=== PATIENT | male | born 1960 | race Hispanic/Latino ===

== ENCOUNTER 2022-08-04 12:57 | Emergency (ER) | payer MEDICARE, OTHER ==
[~2022-08-04] VITALS: Ht 180.3 cm; Wt 122.5 kg
[2022-08-04 13:28] LABS: BASOPHILS % (AUTO) 0.7 % (0.0-5.0); EOSINOPHILS % (AUTO) 0.7 % (0.0-8.0); HEMATOCRIT 32.6 % (42-54); LYMPHOCYTES % (AUTO) 19.3 % (21.0-51.0); MEAN CORPUSCULAR HEMOGLOBIN 29.1 pg (27.0-33.0); MEAN CORPUSCULAR HGB CONC 32.8 g/dL (32.0-36.0); MEAN CORPUSCULAR VOLUME 88.6 fL (79-99); MONOCYTES % (AUTO) 11.6 % (3.0-13.0); NEUTROPHILS % (AUTO) 61.1 % (40.0-77.0); NUCLEATED RED BLOOD CELLS 0.7 % (0.0-0.19); PLATELET COUNT (AUTO) 154 K/uL (130-400); RED BLOOD CELL COUNT(AUTO) 3.68 MIL/uL (4.50-6.20); RED CELL DISTRIBUTION WIDTH 16.1 % (11.0-15.5)
[2022-08-04] MEDS ORDERED: MECLIZINE HCL 25 MG TABLET PO ONE (13:30)
[2022-08-04] MEDS ORDERED: 0.9%NACL 1000ML 1,000 ML IV ONE (13:30)
[2022-08-04 13:39] LABS: CREATININE 1.5 mg/dL (0.5-1.5); POTASSIUM 4.2 mmol/L (3.5-5.1)
[2022-08-04 13:44] LABS: ALBUMIN 3.2 g/dL (3.5-5.0); TOTAL PROTEIN, SERUM 6.9 g/dL (6.0-8.3)
[2022-08-04 14:45] LABS: EOSINOPHILS % (MANUAL) 2 % (1-6); LYMPHOCYTES % (MANUAL) 24 % (22-44); MAN.DIFF COMMENT-IMPRESSION MANUAL DIFFERENTIAL; MONOCYTES % (MANUAL) 8 % (2-9); PLATELET MORPHOLOGY COMMENT ADEQUATE; SEGMENTED NEUTROPHILS % 66 % (40-70)
[2022-08-04] MEDS ORDERED: MECL-226 PO (15:01)
[2022-08-04 15:08] VITALS: BP 138/75
[2022-08-04 15:15] LABS: APPEARANCE,URINE CLEAR (CLEAR); BILIRUBIN,URINE NEGATIVE (NEGATIVE); COLOR,URINE COLORLESS (YELLOW); GLUCOSE, URINE (UA) NEGATIVE (NEGATIVE); KETONES,URINE NEGATIVE (NEGATIVE); LEUKOCYTE ESTERASE ,URINE 25 Leu/uL (NEGATIVE); NITRATE,URINE NEGATIVE (NEGATIVE); OCCULT BLOOD,URINE NEGATIVE (NEGATIVE); PH,URINE 5.5 (5.0-8.0); PROTEIN,URINE 30 mg/dL (NEGATIVE); UROBILINOGEN,URINE 0.2 mg/dL (0.2-1.0)
[2022-08-04 15:28] LABS: BACTERIA,URINE RARE /HPF (None Seen); MUCUS,URINE RARE LPF (None Seen); RBC,URINE 0-1 /HPF (0-1); SQUAMOUS EPITHELIAL CELL,UR RARE /HPF (0-2)
== END 2022-08-04 15:08 | disposition home or self-care (01) ==
LOC: EDH 12:57
DX: R42 Dizziness and giddiness (principal); R53.1 Weakness; E86.0 Dehydration; Z20.822 Contact with and (suspected) exposure to COVID-19; E11.9 Type 2 diabetes mellitus without complications; Z98.890 Other specified postprocedural states
CPT/HCPCS: 99285; 96360; 70450; 71045; 87635; 84484; 80053; 85025; 87804 ×2; 82948; 81001; 36415; 93005 ×2; C9803; J7030

== ENCOUNTER 2022-08-11 11:22 | Emergency (ER) | payer MEDICARE ==
[~2022-08-11] VITALS: Ht 172.7 cm; Wt 122.5 kg
[~2022-08-11 11:22] MED LIST: MECL-226 PO
[2022-08-11 12:04] LABS: BASOPHILS % (AUTO) 0.2 % (0.0-5.0); EOSINOPHILS % (AUTO) 0.7 % (0.0-8.0); HEMATOCRIT 30.8 % (42-54); MEAN CORPUSCULAR HEMOGLOBIN 28.4 pg (27.0-33.0); MEAN CORPUSCULAR HGB CONC 31.5 g/dL (32.0-36.0); MEAN CORPUSCULAR VOLUME 90.1 fL (79-99); MONOCYTES % (AUTO) 12.8 % (3.0-13.0); NEUTROPHILS % (AUTO) 76.2 % (40.0-77.0); NUCLEATED RED BLOOD CELLS 0.5 % (0.0-0.19); PLATELET COUNT (AUTO) 109 K/uL (130-400); RED BLOOD CELL COUNT(AUTO) 3.42 MIL/uL (4.50-6.20); RED CELL DISTRIBUTION WIDTH 17.2 % (11.0-15.5); WHITE BLOOD COUNT (AUTO) 5.6 K/uL (4.8-10.8)
[2022-08-11 12:21] LABS: CREATININE 1.4 mg/dL (0.5-1.5); POTASSIUM 3.2 mmol/L (3.5-5.1)
[2022-08-11 12:25] LABS: TOTAL PROTEIN, SERUM 6.2 g/dL (6.0-8.3)
[2022-08-11] MEDS ORDERED: POTASSIUM BICARB/CIT AC 25 MEQ TABLET.EFF PO STA (13:01)
[2022-08-11 13:47] VITALS: BP 148/63
== END 2022-08-11 14:33 | disposition home or self-care (01) ==
LOC: EDH 11:22
DX: E11.649 Type 2 diabetes mellitus with hypoglycemia without coma (principal); I10 Essential (primary) hypertension
CPT/HCPCS: 36415; 80053; 82948; 84484; 85025; 93005

== ENCOUNTER → 2022-09-17 | Outpatient (CLI) | payer MEDICARE | END | disposition home or self-care (01) | LOC: SHCH 07:40 | PROVIDERS: ATTEND Internal Medicine Cardiovascular Disease | DX: E11.9 Type 2 diabetes mellitus without complications (principal); E78.5 Hyperlipidemia, unspecified | CPT/HCPCS: 93306 ==

== ENCOUNTER 2022-10-28 14:05 | Emergency (ER) | payer MEDICARE ==
[~2022-10-28] VITALS: Ht 167.6 cm; Wt 90.7 kg
[2022-10-28 14:23] LABS: BASOPHILS % (AUTO) 0.3 % (0.0-5.0); EOSINOPHILS % (AUTO) 0.5 % (0.0-8.0); HEMATOCRIT 36.4 % (42-54); LYMPHOCYTES % (AUTO) 11.8 % (21.0-51.0); MEAN CORPUSCULAR HEMOGLOBIN 28.9 pg (27.0-33.0); MEAN CORPUSCULAR HGB CONC 30.5 g/dL (32.0-36.0); MEAN CORPUSCULAR VOLUME 94.8 fL (79-99); MONOCYTES % (AUTO) 10.1 % (3.0-13.0); PLATELET COUNT (AUTO) 165 K/uL (130-400); RED BLOOD CELL COUNT(AUTO) 3.84 MIL/uL (4.50-6.20); RED CELL DISTRIBUTION WIDTH 16.7 % (11.0-15.5); WHITE BLOOD COUNT (AUTO) 6.2 K/uL (4.8-10.8)
[2022-10-28 14:33] LABS: CREATININE 1.1 mg/dL (0.5-1.5); POTASSIUM 3.6 mmol/L (3.5-5.1)
[2022-10-28 14:38] LABS: ALBUMIN 3.1 g/dL (3.5-5.0); TOTAL PROTEIN, SERUM 6.8 g/dL (6.0-8.3)
[2022-10-28 15:58] VITALS: BP 140/60
== END 2022-10-28 16:31 | disposition home or self-care (01) ==
LOC: EDH 14:05
DX: E11.649 Type 2 diabetes mellitus with hypoglycemia without coma (principal); E78.00 Pure hypercholesterolemia, unspecified; I10 Essential (primary) hypertension; Z79.899 Other long term (current) drug therapy; Z79.4 Long term (current) use of insulin; Z79.84 Long term (current) use of oral hypoglycemic drugs
CPT/HCPCS: 36415; 80053; 82948; 85025

== ENCOUNTER 2023-06-14 18:20 | Emergency (ER) | payer MEDICARE ==
[~2023-06-14] VITALS: Ht 180.3 cm; Wt 122.5 kg
[~2023-06-14 18:20] MED LIST changes: +BENZ-39 PO
[2023-06-14 18:59] LABS: BASOPHILS # (AUTO) 0.02 K/uL (0.00-0.20); BASOPHILS % (AUTO) 0.3 % (0.0-5.0); EOSINOPHILS # (AUTO) 0.03 K/uL (0.00-0.70); EOSINOPHILS % (AUTO) 0.4 % (0.0-8.0); HEMATOCRIT 30.5 % (42-54); IMMATURE GRANULOCYTE ABSOLUTE 0.03 K/uL (0-1); LYMPHOCYTES # (AUTO) 0.7 K/uL (1.0-4.8); LYMPHOCYTES % (AUTO) 9.9 % (21.0-51.0); MEAN CORPUSCULAR HEMOGLOBIN 27.4 pg (27.0-33.0); MEAN CORPUSCULAR HGB CONC 31.5 g/dL (32.0-36.0); MEAN CORPUSCULAR VOLUME 86.9 fL (79-99); MONOCYTES # (AUTO) 0.2 K/uL (0.1-1.0); NEUTROPHILS # (AUTO) 6.4 K/uL (1.8-7.7); PLATELET COUNT (AUTO) 189 K/uL (130-400); RED BLOOD CELL COUNT(AUTO) 3.51 MIL/uL (4.50-6.20); RED CELL DISTRIBUTION WIDTH 16.8 % (11.0-15.5); WHITE BLOOD COUNT (AUTO) 7.5 K/uL (4.8-10.8)
[2023-06-14 19:15] LABS: CREATININE 1.6 mg/dL (0.5-1.5)
[2023-06-14 19:24] LABS: ALBUMIN 3.2 g/dL (3.5-5.0); BILIRUBIN,TOTAL 0.2 mg/dL (0.2-1.0); TOTAL PROTEIN, SERUM 6.8 g/dL (6.0-8.3)
[2023-06-14] MEDS ORDERED: LACTATED RINGERS 1000ML 1,000 ML IV ONE (20:00)
[2023-06-14 20:07] LABS: MAGNESIUM 1.9 mg/dL (1.80-2.40); THYROID STIMULATING HORMONE 1.81 uIU/mL (0.36-3.74)
[2023-06-14 21:20] LABS: APPEARANCE,URINE CLEAR (CLEAR); BILIRUBIN,URINE NEGATIVE (NEGATIVE); COLOR,URINE LIGHT-YELLOW (YELLOW); GLUCOSE, URINE (UA) >=1000 mg/dL (NEGATIVE); KETONES,URINE NEGATIVE (NEGATIVE); LEUKOCYTE ESTERASE ,URINE NEGATIVE Leu/uL (NEGATIVE); NITRATE,URINE NEGATIVE (NEGATIVE); OCCULT BLOOD,URINE NEGATIVE (NEGATIVE); PH,URINE 5.5 (5.0-8.0); PROTEIN,URINE 100 mg/dL (NEGATIVE); UROBILINOGEN,URINE 0.2 mg/dL (0.2-1.0)
[2023-06-14 21:21] LABS: ADD UA MICROSCOPIC YES
[2023-06-14 21:22] LABS: BACTERIA,URINE RARE /HPF (None Seen); MUCUS,URINE RARE LPF (None Seen)
[2023-06-14 22:02] VITALS: BP 159/72; PULSE 60; RESP 18; O2SAT 97
== END 2023-06-14 22:13 | disposition home or self-care (01) ==
LOC: EDH 18:20
DX: R53.1 Weakness (principal); I10 Essential (primary) hypertension; E78.00 Pure hypercholesterolemia, unspecified; E11.9 Type 2 diabetes mellitus without complications
CPT/HCPCS: 99285; 96360; 71045; 84443; 83735; 84484; 80053; 83690; 85025; 81001; 36415; 93005; J7120

== ENCOUNTER 2023-12-15 18:11 | Emergency (ER) | payer MEDICARE ==
[~2023-12-15] VITALS: Ht 180.3 cm; Wt 122.5 kg
[2023-12-15 21:21] LABS: HEMATOCRIT 32.2 % (42-54); IMMATURE GRANULOCYTE ABSOLUTE 0.02 K/uL (0-1); LYMPHOCYTES # (AUTO) 0.4 K/uL (1.0-4.8); MEAN CORPUSCULAR HEMOGLOBIN 27.7 pg (27.0-33.0); MEAN CORPUSCULAR HGB CONC 30.7 g/dL (32.0-36.0); MEAN CORPUSCULAR VOLUME 89.9 fL (79-99); MONOCYTES # (AUTO) 0.1 K/uL (0.1-1.0); MONOCYTES % (AUTO) 1.4 % (3.0-13.0); NEUTROPHILS # (AUTO) 3.7 K/uL (1.8-7.7); NEUTROPHILS % (AUTO) 88.1 % (40.0-77.0); PLATELET COUNT (AUTO) 173 K/uL (130-400); RED BLOOD CELL COUNT(AUTO) 3.58 MIL/uL (4.50-6.20); RED CELL DISTRIBUTION WIDTH 15.6 % (11.0-15.5); WHITE BLOOD COUNT (AUTO) 4.2 K/uL (4.8-10.8)
[2023-12-15 21:37] LABS: CREATININE 1.3 mg/dL (0.5-1.5); POTASSIUM 4.7 mmol/L (3.5-5.1)
[2023-12-15 21:41] LABS: ALBUMIN 3.4 g/dL (3.5-5.0); BILIRUBIN,TOTAL 0.3 mg/dL (0.2-1.0); TOTAL PROTEIN, SERUM 7.3 g/dL (6.0-8.3)
[2023-12-15 22:13] LABS: LYMPHOCYTES % (MANUAL) 9 % (22-44); MAN.DIFF COMMENT-IMPRESSION MANUAL DIFFERENTIAL; MONOCYTES % (MANUAL) 1 % (2-9); SEGMENTED NEUTROPHILS % 90 % (40-70); TOTAL CELLS COUNTED 100
[2023-12-15 23:18] VITALS: BP 149/66; PULSE 68; RESP 18; O2SAT 96
== END 2023-12-15 23:58 | disposition left against medical advice (07) ==
LOC: EDH 18:11
DX: R55 Syncope and collapse (principal); E11.9 Type 2 diabetes mellitus without complications; E78.00 Pure hypercholesterolemia, unspecified; I10 Essential (primary) hypertension
CPT/HCPCS: 36415; 70450; 71045; 80053; 83605; 84484; 85025

== ENCOUNTER 2023-12-28 22:02 | Emergency (ER) | payer MEDICARE ==
[~2023-12-28] VITALS: Ht 177.8 cm; Wt 102.1 kg
[2023-12-28 22:59] VITALS: BP 132/74; PULSE 66; RESP 18; O2SAT 99
== END 2023-12-28 23:51 | disposition home or self-care (01) ==
LOC: EDH 22:02
DX: E11.65 Type 2 diabetes mellitus with hyperglycemia (principal)
CPT/HCPCS: 71045; 82948

== ENCOUNTER 2023-12-30 11:29 | Emergency (ER) | payer MEDICARE ==
[~2023-12-30] VITALS: Ht 180.3 cm; Wt 120.2 kg
[2023-12-30] MEDS: 0.9%NACL 1000ML 2,259 ML IV ONE (12:14)
[2023-12-30 12:26] LABS: HEMATOCRIT 28.7 % (42-54); MEAN CORPUSCULAR HEMOGLOBIN 27.6 pg (27.0-33.0); MEAN CORPUSCULAR HGB CONC 30.7 g/dL (32.0-36.0); PLATELET COUNT (AUTO) 186 K/uL (130-400); RED BLOOD CELL COUNT(AUTO) 3.19 MIL/uL (4.50-6.20); RED CELL DISTRIBUTION WIDTH 16.7 % (11.0-15.5); WHITE BLOOD COUNT (AUTO) 5.6 K/uL (4.8-10.8)
[2023-12-30 12:36] LABS: CREATININE 1.5 mg/dL (0.5-1.5); POTASSIUM 4.4 mmol/L (3.5-5.1)
[2023-12-30 12:47] LABS: ABG BASE EXCESS -0.4 mmol/L (-2.0-3.0); ABG HCO3 23.1 mmol/L (21.0-28.0); ABG OXYGEN SATURATION 97.8 % (95.0-99.0); ABG PCO2 34 mmHg (35-48); ABG PH 7.444 (7.35-7.450); PO2, ARTERIAL BG 100.4 mmHg (83.0-108.0); VENT MODE, BG RA (ROOM AIR)
[2023-12-30] MEDS: INSULIN HUMULIN R 100 UNIT/ML 3ML IV ONE (12:59)
[2023-12-30 13:04] VITALS: BP 153/63; PULSE 63; RESP 18; O2SAT 99
[2023-12-30 14:12] LABS: LYMPHOCYTES % (MANUAL) 8 % (22-44); MONOCYTES % (MANUAL) 5 % (2-9); SEGMENTED NEUTROPHILS % 87 % (40-70); TOTAL CELLS COUNTED 100
[2023-12-30 14:13] LABS: MAN.DIFF COMMENT-IMPRESSION MANUAL DIFFERENTIAL; PLATELET MORPHOLOGY COMMENT ADEQUATE; WBC MORPHOLOGY CONSISTENT W/DIFF
== END 2023-12-30 14:05 | disposition home or self-care (01) ==
LOC: EDH 11:29
DX: E11.65 Type 2 diabetes mellitus with hyperglycemia (principal); E86.0 Dehydration; E78.00 Pure hypercholesterolemia, unspecified; I10 Essential (primary) hypertension; Z85.038 Personal history of other malignant neoplasm of large intestine
CPT/HCPCS: 99283; 96374; 96361; 80048; 82803; 85025; 82948; 82010; 36415; 36600; J1815; J7030

== ENCOUNTER 2024-03-21 22:09 | Emergency (ER) | payer MEDICARE ==
[2024-03-21 22:49] VITALS: BP 141/67; PULSE 71; RESP 22; O2SAT 98
[2024-03-21 23:04] LABS: BASOPHILS # (AUTO) 0.02 K/uL (0.00-0.20); BASOPHILS % (AUTO) 0.6 % (0.0-5.0); EOSINOPHILS # (AUTO) 0.03 K/uL (0.00-0.70); EOSINOPHILS % (AUTO) 0.9 % (0.0-8.0); HEMATOCRIT 26.2 % (42-54); IMMATURE GRANULOCYTE ABSOLUTE 0.13 K/uL (0-1); LYMPHOCYTES # (AUTO) 0.6 K/uL (1.0-4.8); LYMPHOCYTES % (AUTO) 17.7 % (21.0-51.0); MEAN CORPUSCULAR HEMOGLOBIN 27.6 pg (27.0-33.0); MEAN CORPUSCULAR HGB CONC 30.5 g/dL (32.0-36.0); MEAN CORPUSCULAR VOLUME 90.3 fL (79-99); MONOCYTES # (AUTO) 0.4 K/uL (0.1-1.0); MONOCYTES % (AUTO) 11.9 % (3.0-13.0); NEUTROPHILS # (AUTO) 2.2 K/uL (1.8-7.7); NEUTROPHILS % (AUTO) 65.1 % (40.0-77.0); PLATELET COUNT (AUTO) 201 K/uL (130-400); RED CELL DISTRIBUTION WIDTH 17.5 % (11.0-15.5); WHITE BLOOD COUNT (AUTO) 3.4 K/uL (4.8-10.8)
[2024-03-21 23:11] LABS: INR <= 0.93 (0.85-1.15); PROTHROMBIN TIME 10.6 SEC (9.6-11.6)
[2024-03-21 23:14] LABS: CREATININE 1.2 mg/dL (0.5-1.3)
[2024-03-21 23:20] LABS: ADD UA MICROSCOPIC YES; APPEARANCE,URINE CLEAR (CLEAR); BILIRUBIN,URINE NEGATIVE (NEGATIVE); COLOR,URINE COLORLESS (YELLOW); GLUCOSE, URINE (UA) >=1000 mg/dL (NEGATIVE); KETONES,URINE NEGATIVE (NEGATIVE); LEUKOCYTE ESTERASE ,URINE NEGATIVE Leu/uL (NEGATIVE); NITRATE,URINE NEGATIVE (NEGATIVE); OCCULT BLOOD,URINE NEGATIVE (NEGATIVE); PROTEIN,URINE 10 mg/dL (NEGATIVE); UROBILINOGEN,URINE 0.2 mg/dL (0.2-1.0)
[2024-03-21 23:21] LABS: BILIRUBIN,TOTAL 0.2 mg/dL (0.2-1.0); MAGNESIUM 2.1 mg/dL (1.80-2.40); TOTAL PROTEIN, SERUM 6.5 g/dL (6.0-8.3)
[2024-03-21 23:21] LABS: RBC,URINE 0-1 /HPF (0-1); WBC,URINE 0-1 /HPF (0-1)
[2024-03-21 23:42] LABS: B-TYPE NATRIURETIC PEPTIDE 66 pg/mL (0-100)
[2024-03-22] MEDS: LACTATED RINGERS 1000ML 1,000 ML IV ONE (01:00)
== END 2024-03-22 02:59 | disposition home or self-care (01) ==
LOC: EDH 22:09
DX: E86.0 Dehydration (principal); R55 Syncope and collapse; E11.9 Type 2 diabetes mellitus without complications; E78.00 Pure hypercholesterolemia, unspecified; I10 Essential (primary) hypertension
CPT/HCPCS: 99285; 96360; 70450; 71045; 96361; 82550; 83735; 84484 ×2; 80053; 83880; 85025; 85610; 82948; 81001; 36415; 93005; J7120

== ENCOUNTER 2024-04-14 14:28 | Observation (INO) | payer MEDICARE ==
[~2024-04-14] VITALS: Ht 180.3 cm; Wt 120.9 kg
[2024-04-14] MEDS: ASPIRIN 81MG CHEW TAB PO ONE (14:52)
[2024-04-14 15:03] LABS: BASOPHILS # (AUTO) 0.01 K/uL (0.00-0.20); BASOPHILS % (AUTO) 0.2 % (0.0-5.0); EOSINOPHILS # (AUTO) 0.01 K/uL (0.00-0.70); EOSINOPHILS % (AUTO) 0.2 % (0.0-8.0); HEMATOCRIT 25.8 % (42-54); IMMATURE GRANULOCYTE ABSOLUTE 0.02 K/uL (0-1); LYMPHOCYTES # (AUTO) 0.5 K/uL (1.0-4.8); LYMPHOCYTES % (AUTO) 10.5 % (21.0-51.0); MEAN CORPUSCULAR HEMOGLOBIN 27.3 pg (27.0-33.0); MEAN CORPUSCULAR HGB CONC 30.2 g/dL (32.0-36.0); MEAN CORPUSCULAR VOLUME 90.2 fL (79-99); MONOCYTES # (AUTO) 0.3 K/uL (0.1-1.0); MONOCYTES % (AUTO) 5.9 % (3.0-13.0); NEUTROPHILS # (AUTO) 4.2 K/uL (1.8-7.7); NEUTROPHILS % (AUTO) 82.8 % (40.0-77.0); PLATELET COUNT (AUTO) 193 K/uL (130-400); RED BLOOD CELL COUNT(AUTO) 2.86 MIL/uL (4.50-6.20); RED CELL DISTRIBUTION WIDTH 18.5 % (11.0-15.5); WHITE BLOOD COUNT (AUTO) 5.1 K/uL (4.8-10.8)
[2024-04-14 15:14] LABS: CREATININE 1.6 mg/dL (0.5-1.3); POTASSIUM 4.2 mmol/L (3.5-5.1)
[2024-04-14 15:22] LABS: BILIRUBIN,TOTAL 0.2 mg/dL (0.2-1.0); TOTAL PROTEIN, SERUM 6.5 g/dL (6.0-8.3)
[2024-04-14 15:31] LABS: B-TYPE NATRIURETIC PEPTIDE 74 pg/mL (0-100)
[2024-04-14] MEDS: 0.9% NACL 500ML IV.SOLN 500 ML IV ONE (17:59)
[2024-04-14 18:10] LABS: ADD UA MICROSCOPIC YES; APPEARANCE,URINE CLEAR (CLEAR); BILIRUBIN,URINE NEGATIVE (NEGATIVE); COLOR,URINE LIGHT-YELLOW (YELLOW); GLUCOSE, URINE (UA) >=1000 mg/dL (NEGATIVE); KETONES,URINE NEGATIVE (NEGATIVE); LEUKOCYTE ESTERASE ,URINE NEGATIVE Leu/uL (NEGATIVE); NITRATE,URINE NEGATIVE (NEGATIVE); OCCULT BLOOD,URINE NEGATIVE (NEGATIVE); PH,URINE 5.5 (5.0-8.0); PROTEIN,URINE 30 mg/dL (NEGATIVE); UROBILINOGEN,URINE 0.2 mg/dL (0.2-1.0)
[2024-04-14 18:16] LABS: BACTERIA,URINE RARE /HPF (None Seen); MUCUS,URINE RARE LPF (None Seen); SQUAMOUS EPITHELIAL CELL,UR RARE /HPF (0-2)
[2024-04-14] MEDS ORDERED: DEXTROSE 50%-WATER 50 ML DISP.SYRIN IV PRN (20:00)
[2024-04-14] MEDS ORDERED: ONDANSETRON 4MG INJ IV PRN (20:00)
[2024-04-14] MEDS ORDERED: ACETAMINOPHEN 325 MG TAB PO PRN ×2 (20:00)
[2024-04-14] MEDS ORDERED: POTASSIUM CHLORIDE 20MEQ/100ML 100 ML IV PRN (20:00)
[2024-04-14] MEDS ORDERED: NITROGLYCERIN 0.4 MG SL TAB SL PRN (20:00)
[2024-04-14] MEDS ORDERED: POTASSIUM CHLORIDE 10% ELIXIR 20 MEQ/15 ML UDCUP PO PRN (20:00)
[2024-04-14] MEDS ORDERED: GLUCAGON 1MG KIT 1 MG ML IM PRN (20:00)
[2024-04-14] MEDS ORDERED: KCL 20 MEQ ERTAB PO PRN (20:00)
[2024-04-14] MEDS ORDERED: MAGNESIUM 2GM PREMIX 50ML 50 ML IV PRN (20:00)
[2024-04-14] MEDS: 0.9%NACL 1000ML 1,000 ML IV SCH (21:30)
[2024-04-14] MEDS: INSULIN HUMULIN R 100 UNIT/ML 3ML SQ SCH (21:37)
[2024-04-14] MEDS: HYDRALAZINE 20MG/ML VIAL IV PRN (21:47)
[2024-04-14 22:00] VITALS: BP 163/63; PULSE 82; RESP 19; O2SAT 97
[2024-04-14] MEDS ORDERED: ROSU40TA70 PO (22:57)
[2024-04-14] MEDS ORDERED: DULO60CA45 PO (22:57)
[2024-04-14] MEDS ORDERED: SITA100T12 PO (22:57)
[2024-04-14] MEDS ORDERED: MEMA10TA21 PO (22:57)
[2024-04-14] MEDS ORDERED: CHOL500051 PO (22:57)
[2024-04-14] MEDS ORDERED: LISI40TA9 PO (22:57)
[2024-04-14] MEDS ORDERED: FENO145T26 PO (22:57)
[2024-04-14] MEDS ORDERED: GABA-529 PO (22:57)
[2024-04-14] MEDS ORDERED: PIOG15TA66 PO (22:57)
[2024-04-14] MEDS ORDERED: ALLO100T PO (22:57)
[2024-04-14] MEDS ORDERED: ASCO500T19 PO (22:57)
[2024-04-14] MEDS ORDERED: AMLO5TAB4 PO (22:57)
[2024-04-15] VITALS (8 sets, daily range): BP systolic 131–147; BP diastolic 52–64; PULSE 59–99; RESP 16–20; O2SAT 99
[2024-04-15] MEDS: PANTOPRAZOLE 40 MG/VIAL IVP SCH (08:10)
[2024-04-15 08:25] LABS: BASOPHILS # (AUTO) 0.01 K/uL (0.00-0.20); BASOPHILS % (AUTO) 0.3 % (0.0-5.0); HEMATOCRIT 28.2 % (42-54); IMMATURE GRANULOCYTE ABSOLUTE 0.03 K/uL (0-1); LYMPHOCYTES # (AUTO) 0.6 K/uL (1.0-4.8); MEAN CORPUSCULAR HEMOGLOBIN 27.3 pg (27.0-33.0); MEAN CORPUSCULAR HGB CONC 29.8 g/dL (32.0-36.0); MEAN CORPUSCULAR VOLUME 91.6 fL (79-99); MONOCYTES # (AUTO) 0.2 K/uL (0.1-1.0); NEUTROPHILS # (AUTO) 3.1 K/uL (1.8-7.7); NEUTROPHILS % (AUTO) 77.9 % (40.0-77.0); PLATELET COUNT (AUTO) 182 K/uL (130-400); RED BLOOD CELL COUNT(AUTO) 3.08 MIL/uL (4.50-6.20); RED CELL DISTRIBUTION WIDTH 18.2 % (11.0-15.5)
[2024-04-15 08:44] LABS: BILIRUBIN,TOTAL 0.2 mg/dL (0.2-1.0); CREATININE 1.1 mg/dL (0.5-1.3); TOTAL PROTEIN, SERUM 6.6 g/dL (6.0-8.3)
[2024-04-16] VITALS: BP 163/60; PULSE 60; RESP 17
[2024-04-16 04:00] VITALS: BP 111/57; PULSE 71; RESP 17
[2024-04-16 04:58] LABS: EOSINOPHILS # (AUTO) 0.02 K/uL (0.00-0.70); EOSINOPHILS % (AUTO) 0.6 % (0.0-8.0); HEMATOCRIT 27.1 % (42-54); IMMATURE GRANULOCYTE ABSOLUTE 0.01 K/uL (0-1); LYMPHOCYTES # (AUTO) 0.6 K/uL (1.0-4.8); MEAN CORPUSCULAR HEMOGLOBIN 27.5 pg (27.0-33.0); MEAN CORPUSCULAR HGB CONC 29.9 g/dL (32.0-36.0); MEAN CORPUSCULAR VOLUME 91.9 fL (79-99); MONOCYTES # (AUTO) 0.2 K/uL (0.1-1.0); MONOCYTES % (AUTO) 6.6 % (3.0-13.0); NEUTROPHILS # (AUTO) 2.6 K/uL (1.8-7.7); NEUTROPHILS % (AUTO) 75.5 % (40.0-77.0); PLATELET COUNT (AUTO) 187 K/uL (130-400); RED BLOOD CELL COUNT(AUTO) 2.95 MIL/uL (4.50-6.20); RED CELL DISTRIBUTION WIDTH 17.8 % (11.0-15.5); WHITE BLOOD COUNT (AUTO) 3.5 K/uL (4.8-10.8)
[2024-04-16 05:26] LABS: CARBON DIOXIDE 24 mmol/L (21-32); CHLORIDE 106 mmol/L (101-111); CREATININE 0.9 mg/dL (0.5-1.3); GLOMERULAR FILTR. RATE CALC 95 mL/min (>90); GLUCOSE,RANDOM 123 mg/dL (70-105); POTASSIUM 3.8 mmol/L (3.5-5.1); SODIUM SERUM 140 mmol/L (136-145); UREA NITROGEN, BLOOD 18 mg/dL (7-18)
[2024-04-16 08:00] VITALS: O2SAT 99
[2024-04-16 08:02] VITALS: BP 154/69; PULSE 61; RESP 20
[2024-04-16 11:27] VITALS: BP 141/61; PULSE 61; RESP 18
[2024-04-16] MEDS ORDERED: ALLOPURINOL 100 MG TABLET PO SCH (21:00)
[2024-04-16] MEDS ORDERED: GABAPENTIN 300 MG CAPSULE PO SCH (21:00)
[2024-04-16] MEDS ORDERED: MEMANTINE HCL 5 MG TABLET PO SCH (21:00)
[2024-04-17] MEDS ORDERED: AMLODIPINE 5 MG TAB PO SCH (09:00)
[2024-04-17] MEDS ORDERED: ASCORBIC ACID 500 MG TAB PO SCH (09:00)
[2024-04-17] MEDS ORDERED: LISINOPRIL 40 MG TABLET PO SCH (09:00)
[2024-04-17] MEDS ORDERED: PIOGLITAZONE 15MG TAB PO SCH (09:00)
[2024-04-17] MEDS ORDERED: DULOXETINE HCL 30 MG CAP PO SCH (09:00)
[2024-04-17] MEDS ORDERED: (Sitagliptin Phosphate (Januvia) 100 MG) PO SCH (09:00)
[2024-04-17] MEDS ORDERED: FENOFIBRATE NANOCRYSTALLIZED 145 MG TAB PO SCH (09:00)
== END 2024-04-16 13:20 | disposition home or self-care (01) ==
LOC: EDH 14:28 → EDHIP 19:54 → 3DH 21:44
PROVIDERS: ADMIT Internal Medicine; ATTEND Internal Medicine
DX: R07.89 Other chest pain (principal); D64.9 Anemia, unspecified; E11.65 Type 2 diabetes mellitus with hyperglycemia; N17.9 Acute kidney failure, unspecified; R74.8 Abnormal levels of other serum enzymes; I10 Essential (primary) hypertension; E66.9 Obesity, unspecified; I25.9 Chronic ischemic heart disease, unspecified; Z93.3 Colostomy status; Z85.038 Personal history of other malignant neoplasm of large intestine; Z87.891 Personal history of nicotine dependence; Z68.37 Body mass index [BMI] 37.0-37.9, adult; Z86.2 Personal history of diseases of the blood and blood-forming organs and certain disorders involving the immune mechanism; Z79.899 Other long term (current) drug therapy
CPT/HCPCS: 96372 ×4; 96374; 96361 ×4; 99285; 84484 ×5; 80053 ×2; 83880; 83690; 85025 ×3; 86850; 86900; 86901; 82948 ×7; 81001; 36415 ×3; 71045; 93005; 96375; 83735; 93306; 93356; 76376; 96376; 83540; 83550; 80048; 82607; 82746; 82270; J1815 ×2; G0378 ×40; A4600; J0360 ×2; C9113 ×2

== ENCOUNTER 2024-05-30 23:34 | Emergency (ER) | payer MEDICARE ==
[~2024-05-30 23:34] MED LIST changes: +ALLO100T PO; +AMLO5TAB4 PO; +ASCO500T19 PO; -BENZ-39 PO; +CHOL500051 PO; +DULO60CA45 PO; +FENO145T26 PO; +GABA-529 PO; +LISI40TA9 PO; -MECL-226 PO; +MEMA10TA21 PO; +PIOG15TA66 PO; +ROSU40TA70 PO; +SITA100T12 PO
[2024-05-31 00:11] LABS: BASOPHILS # (AUTO) 0.01 K/uL (0.00-0.20); BASOPHILS % (AUTO) 0.2 % (0.0-5.0); EOSINOPHILS # (AUTO) 0.02 K/uL (0.00-0.70); EOSINOPHILS % (AUTO) 0.4 % (0.0-8.0); HEMATOCRIT 27.8 % (42-54); IMMATURE GRANULOCYTE ABSOLUTE 0.02 K/uL (0-1); LYMPHOCYTES # (AUTO) 0.7 K/uL (1.0-4.8); LYMPHOCYTES % (AUTO) 15.5 % (21.0-51.0); MEAN CORPUSCULAR HEMOGLOBIN 26.8 pg (27.0-33.0); MEAN CORPUSCULAR HGB CONC 29.9 g/dL (32.0-36.0); MEAN CORPUSCULAR VOLUME 89.7 fL (79-99); MONOCYTES # (AUTO) 0.4 K/uL (0.1-1.0); MONOCYTES % (AUTO) 9.9 % (3.0-13.0); NEUTROPHILS # (AUTO) 3.3 K/uL (1.8-7.7); NEUTROPHILS % (AUTO) 73.6 % (40.0-77.0); PLATELET COUNT (AUTO) 174 K/uL (130-400); RED CELL DISTRIBUTION WIDTH 19.1 % (11.0-15.5); WHITE BLOOD COUNT (AUTO) 4.5 K/uL (4.8-10.8)
[2024-05-31 00:14] LABS: CREATININE 1.2 mg/dL (0.5-1.3); POTASSIUM 4.4 mmol/L (3.5-5.1)
[2024-05-31 00:18] LABS: ALBUMIN 3.1 g/dL (3.5-5.0); BILIRUBIN,TOTAL 0.2 mg/dL (0.2-1.0); TOTAL PROTEIN, SERUM 6.6 g/dL (6.0-8.3)
[2024-05-31 00:31] LABS: B-TYPE NATRIURETIC PEPTIDE 69 pg/mL (0-100)
[2024-05-31] MEDS: ASPIRIN 325MG TAB PO ONE (00:50)
[2024-05-31] MEDS: FUROSEMIDE 40MG VIAL IVP ONE (00:52)
[2024-05-31] MEDS ORDERED: FURO40TA7 PO (03:05)
[2024-05-31 03:26] VITALS: BP 125/51; PULSE 65; RESP 16; O2SAT 98
== END 2024-05-31 03:34 | disposition home or self-care (01) ==
LOC: EDH 23:34
DX: R06.00 Dyspnea, unspecified (principal); I10 Essential (primary) hypertension; E11.9 Type 2 diabetes mellitus without complications; E78.5 Hyperlipidemia, unspecified; F32.A Depression, unspecified; Z79.84 Long term (current) use of oral hypoglycemic drugs; Z79.899 Other long term (current) drug therapy; Z98.890 Other specified postprocedural states
CPT/HCPCS: 99285; 71045; 84484; 80053; 83880; 85025; 36415 ×2; 93005; 96374; J1940

== ENCOUNTER 2024-07-18 18:20 | Emergency (ER) | payer MEDICARE ==
[~2024-07-18] VITALS: Ht 180.3 cm; Wt 127.0 kg
[~2024-07-18 18:20] MED LIST changes: +FURO40TA7 PO; -ROSU40TA70 PO; +ROSU40TA88 PO
[2024-07-18 18:50] VITALS: O2SAT 97
[2024-07-18 18:54] LABS: BASOPHILS # (AUTO) 0.02 K/uL (0.00-0.20); BASOPHILS % (AUTO) 0.3 % (0.0-5.0); HEMATOCRIT 32.1 % (42-54); IMMATURE GRANULOCYTE ABSOLUTE 0.28 K/uL (0-1); LYMPHOCYTES # (AUTO) 0.5 K/uL (1.0-4.8); LYMPHOCYTES % (AUTO) 6.4 % (21.0-51.0); MEAN CORPUSCULAR HEMOGLOBIN 27.4 pg (27.0-33.0); MEAN CORPUSCULAR HGB CONC 29.9 g/dL (32.0-36.0); MEAN CORPUSCULAR VOLUME 91.7 fL (79-99); MONOCYTES # (AUTO) 0.1 K/uL (0.1-1.0); MONOCYTES % (AUTO) 1.1 % (3.0-13.0); NEUTROPHILS # (AUTO) 6.3 K/uL (1.8-7.7); NEUTROPHILS % (AUTO) 88.3 % (40.0-77.0); PLATELET COUNT (AUTO) 243 K/uL (130-400); RED CELL DISTRIBUTION WIDTH 19.3 % (11.0-15.5); WHITE BLOOD COUNT (AUTO) 7.2 K/uL (4.8-10.8)
[2024-07-18 19:10] LABS: CREATININE 1.9 mg/dL (0.5-1.3); POTASSIUM 4.9 mmol/L (3.5-5.1)
[2024-07-18 19:10] LABS: APPEARANCE,URINE CLEAR (CLEAR); BILIRUBIN,URINE NEGATIVE (NEGATIVE); COLOR,URINE COLORLESS (YELLOW); GLUCOSE, URINE (UA) >=1000 mg/dL (NEGATIVE); KETONES,URINE NEGATIVE (NEGATIVE); LEUKOCYTE ESTERASE ,URINE 25 Leu/uL (NEGATIVE); NITRATE,URINE NEGATIVE (NEGATIVE); OCCULT BLOOD,URINE NEGATIVE (NEGATIVE); PH,URINE 6.5 (5.0-8.0); PROTEIN,URINE NEGATIVE (NEGATIVE); UROBILINOGEN,URINE 0.2 mg/dL (0.2-1.0)
[2024-07-18 19:16] LABS: ADD UA MICROSCOPIC YES
[2024-07-18 19:17] LABS: RBC,URINE 0-1 /HPF (0-1); SQUAMOUS EPITHELIAL CELL,UR RARE /HPF (0-2)
[2024-07-18] MEDS: morPHINE 4 MG SYG IVP ONE (19:36)
[2024-07-18] MEDS: ONDANSETRON 4MG INJ IVP ONE (19:36)
[2024-07-18] MEDS: FAMOTIDINE 20MG VIAL IV ONE (19:36)
[2024-07-18] MEDS: 0.9%NACL 1000ML 1,000 ML IV ONE ×2 (19:47→22:31)
[2024-07-18] MEDS: INSULIN humuLIN R 100 UNIT/ML 3ML IV SCH (19:47)
[2024-07-18 19:56] LABS: BAND NEUTROPHILS % (MANUAL) 4 % (0-2); LYMPHOCYTES % (MANUAL) 15 % (22-44); MAN.DIFF COMMENT-IMPRESSION MANUAL DIFFERENTIAL; MONOCYTES % (MANUAL) 3 % (2-9); PLATELET MORPHOLOGY COMMENT ADEQUATE; SEGMENTED NEUTROPHILS % 78 % (40-70); TOTAL CELLS COUNTED 100; WBC MORPHOLOGY CONSISTENT W/DIFF
[2024-07-18 21:41] LABS: CREATININE 1.6 mg/dL (0.5-1.3); POTASSIUM 4.8 mmol/L (3.5-5.1)
[2024-07-18] MEDS ORDERED: CEPH500B PO (23:15)
[2024-07-18 23:26] VITALS: BP 138/65; PULSE 71; RESP 15; TEMP 97.8
== END 2024-07-19 00:01 | disposition home or self-care (01) ==
LOC: EDH 18:20
DX: K43.9 Ventral hernia without obstruction or gangrene (principal); E11.65 Type 2 diabetes mellitus with hyperglycemia; N39.0 Urinary tract infection, site not specified; E78.00 Pure hypercholesterolemia, unspecified; I10 Essential (primary) hypertension; Z79.899 Other long term (current) drug therapy; Z98.890 Other specified postprocedural states
CPT/HCPCS: 99285; 74176; 96374; 96375; 96361; 82550; 84484; 80048 ×2; 83690; 85025; 81001; 36415; 93005; J1815; J3490; J7030; J2405; J2270

== ENCOUNTER 2024-09-26 18:50 | Emergency (ER) | payer MEDICARE ==
[~2024-09-26] VITALS: Ht 180.3 cm; Wt 127.0 kg
[~2024-09-26 18:50] MED LIST changes: +ASCO500C18 PO; -ASCO500T19 PO; +CYAN100099 PO; +DAPA10TA PO; +MELO-106 PO
--- NOTE | 2024-09-26 19:21 | ERN ---
ED Note History of Present Illness Stated Complaint: WEAKNESS Chief Complaint: Weakness Time Seen by MD: 19:07 Dictation: This is a 64-year-old male who came in via EMS stating that he was very weak he underwent chemotherapy. He was diagnosed with colon cancer in 2019 and underwent resection and colostomy at the time. He has been getting chemotherapy since 2019 And his oncologist is in [place]. He does not recall the name of the chemotherapy but gets every other week. According to the daughter who accompanied him, he has a recurrence to the lining of the stomach as well as spread to the liver. So indicated that the recently they saw a week ago the agricultural agent in [facility] who was concerned about" fluid on the lungs". Patient has been laying in bed and sometimes feels like he is going to blackout. He also feels wobbly when he is walking around Temperature 98.4, heart rate of 82, respiratory rate of 16 blood pressure 159/75 His chronic medical problems include diabetes mellitus type 2 hypercholesterolemia hypertension history of cancer and also has colostomy Allergies: Coded Allergies: No Known Drug Allergies (Unverified Allergy, Unknown, 08/04/22) Home Meds Active Scripts Furosemide (Lasix 40Mg Tab) 40 Mg Tablet, 40 MG PO DAILY for 3 Days, #3 TAB Prov:RAFAT LARA MD 05/31/24 Reported Medications Cyanocobalamin (Vitamin B-12) (B-12) 1,000 Mcg Tablet, 1 TAB PO DAILY for 30 Days, #30 TAB 0 Refills 08/22/24 Ascorbic Acid (Vitamin C) 500 Mg Capsule, 1 CAP PO DAILY for 28 Days, #28 CAP 0 Refills 08/22/24 Dapagliflozin Propanediol (Farxiga) 10 Mg Tablet, 1 TAB PO DAILY for 30 Days, #30 TAB 0 Refills 08/22/24 Meloxicam (Meloxicam) 7.5 Mg Tablet, 1 TAB PO DAILY for 30 Days, #30 TAB 0 Refills 08/22/24 Gabapentin (Gabapentin) 100 Mg Capsule, 300 MG PO TID, CAP 04/14/24 Fenofibrate Nanocrystallized (Fenofibrate) 145 Mg Tablet, 145 MG PO DAILY, TAB 04/14/24 Duloxetine HCl (Cymbalta) 60 Mg Capsule.dr, 60 MG PO DAILY, CAP 04/14/24 Cholecalciferol (Vitamin D3) (Vitamin D3) 125 Mcg (5000 Unit) Capsule, 125 MCG PO QWEEK, CAP 04/14/24 Amlodipine Besylate (Norvasc 5Mg Tab) 5 Mg Tablet, 5 MG PO DAILY, TAB 04/14/24 Rosuvastatin Calcium (Rosuvastatin Calcium) 40 Mg Tablet, 40 MG PO HS, TAB 04/14/24 Lisinopril (Lisinopril) 40 Mg Tablet, 40 MG PO DAILY, TAB 04/14/24 Memantine HCl (Memantine HCl) 10 Mg Tablet, 10 MG PO BID, TAB 04/14/24 Sitagliptin Phosphate (Januvia) 100 Mg Tablet, 100 MG PO DAILY, TAB 04/14/24 Allopurinol (Allopurinol) 100 Mg Tablet, 100 MG PO BID, TAB 04/14/24 Pioglitazone HCl (Pioglitazone HCl) 15 Mg Tablet, 15 MG PO DAILY, TAB 04/14/24 Past Medical History Past Medical History: Cancer, Diabetes-Type II, High Cholesterol, Hypertension Additional Past Medical Hx: COLON CA WITH METS TO LIVER Surgical History: Other Surgical History Other: COLOSTOMY Family History: Negative Social History: Negative, Lives with family RN Note Reviewed/Agreed w/PFSH: Yes Review of System Dictation Constitutional: Negative for fever,chills, and weight loss Eyes: Negative for injury, pain,redness, and discharge ENT: Negative for injury,pain or swelling Cardiovascular: Negative for chest pain, palpitations, and edema Respiratory: Negative for shortness of breath, cough, and wheezing, Abdomen/GI: Negative for abdominal pain, nausea, vomiting, diarrhea, and constipation Back: Negative for injury and pain : Negative for injury, bleeding and discharge MS/Extremity: Negative for injury and deformity Skin: Negative for rash, and discoloration Neuro: Negative for headache, weakness, numbness, tingling, and seizure Psych: Negative for suicide ideation, homicidal ideation, and hallucinations Initial Vital Sign VS Vital Signs Date Time Temp Pulse Resp B/P (MAP) Pulse Ox O2 Delivery O2 Flow Rate FiO2 09/26/24 18:51 98.4 82 16 159/75 96 Room Air 0 09/26/24 19:57 21 Physical Exam Dictation General: awake, alert, NAD morbidly obese male who is not in any distress Head/Face: Normocephalic, atraumatic Eyes: PERRL, EOMI, vision at baseline ENT: oral cavity clear, TMs clear, no signs of infection Neck: Trachea midline, supple, no nuchal rigidity Cardiovascular: RRR, normal S1/S2, No MRGs, no JVD Respiratory: CTAB, no respiratory distress, No rales or wheezes Abdomen: Soft, non-tender, non-distended, normal bowel sounds, no guarding or rebound. Skin: Warm, dry, normal turgor, no rash MS/Extremity: Pulses equal, no cyanosis, neurovascular intact, FROM Neuro: COAx4, GCS 15, strength 5/5, CN 2-12 intact, normal cerebellar exam, normal gait, Psych: Normal behavior, mood, and affect normal Extremities-trace edema without any palpable cords, Homans sign is negative Results (Laboratory/Radiology) Laboratory/Radiology Laboratory Tests Test 09/26/24 19:34 White Blood Count 7.3 K/uL (4.8-10.8) Red Blood Count 3.70 MIL/uL (4.50-6.20) L Hemoglobin 9.9 g/dL (14.0-18.0) L Hematocrit 32.5 % (42-54) L Mean Corpuscular Volume 87.8 fL (79-99) Mean Corpuscular Hemoglobin 26.8 pg (27.0-33.0) L Mean Corpuscular Hemoglobin Concent 30.5 g/dL (32.0-36.0) L Red Cell Distribution Width 18.0 % (11.0-15.5) H Platelet Count 210 K/uL (130-400) Mean Platelet Volume 9.5 fL (7.5-10.5) Immature Granulocyte % (Auto) 1.1 % (0-1) H Neutrophils (%) (Auto) 92.4 % (40.0-77.0) H Lymphocytes (%) (Auto) 5.4 % (21.0-51.0) L Monocytes (%) (Auto) 1.1 % (3.0-13.0) L Eosinophils (%) (Auto) 0.0 % (0.0-8.0) Basophils (%) (Auto) 0.0 % (0.0-5.0) Neutrophils # (Auto) 6.7 K/uL (1.8-7.7) Lymphocytes # (Auto) 0.4 K/uL (1.0-4.8) L Monocytes # (Auto) 0.1 K/uL (0.1-1.0) Eosinophils # (Auto) 0.00 K/uL (0.00-0.70) Basophils # (Auto) 0.00 K/uL (0.00-0.20) Absolute Immature Granulocyte (auto 0.08 K/uL (0-1) Nucleated Red Blood Cells 0.0 % (0.0-0.19) Sodium Level 140 mmol/L (136-145) Potassium Level 4.7 mmol/L (3.5-5.1) Chloride Level 103 mmol/L (101-111) Carbon Dioxide Level 26 mmol/L (21-32) Blood Urea Nitrogen 25 mg/dL (7-18) H Creatinine 1.3 mg/dL (0.5-1.3) Glomerular Filtration Rate Calc 61 mL/min (>90) Random Glucose 348 mg/dL (70-105) H Total Calcium 9.3 mg/dL (8.5-10.1) B-Type Natriuretic Peptide 100 pg/mL (0-100) Labs Reviewed?: Yes EKG Comment: Twelve lead EKG done on 09/26/2024 at 7:54 p.m. showed a sinus rhythm with a heart rate of 83 , AL interval 170, QRS 93, QT/QTC 389/457. Impression normal sinus rhythm with nonspecific ST-T abnormalities in the lateral leads. No acute ST elevations or deep ST depressions noted. Interpreted by ER MD Dr. Hunt ED Course ED Course Orders Procedure Category Date Status Time Cbc With Differential LAB 09/26/24 In Process 19:16 Basic Metabolic Panel LAB 09/26/24 Complete 19:16 Urinalysis Profile LAB 09/26/24 Logged 19:16 0.9%Nacl 1000ml (Ns PHA 09/26/24 Complete 1000ml) 19:30 Chest 1vw RAD 09/26/24 Resulted 19:22 B-Type Natriuretic LAB 09/26/24 Complete Peptide 19:43 12 Lead Ekg Tracing- EKG 09/26/24 Logged Technical 19:43 Current Medications Medications (Trade) Dose Ordered Sig/Nuno Route PRN Reason Start Time Stop Time Status Last Admin Dose Admin Sodium Chloride 1,000 ml @ 0 mls/hr ONCE ONCE IV 09/26/24 19:30 09/26/24 19:31 DC 11/19/24 20:22 Vital Signs Date Time Temp Pulse Resp B/P (MAP) Pulse Ox O2 Delivery O2 Flow Rate FiO2 09/26/24 19:57 98.4 88 18 143/75 99 Room Air* 0 21 09/26/24 18:51 98.4 82 16 159/75 96 Room Air 0 We will perform diagnostic labs, advanced imaging and administer medications according to the patient's complaint. Once the results are available, will review and personally interpreted the labs to rule out any acute life- threatening emergency the trach require immediate intervention and treatment. I will then re-evaluate the patient after treatment and diagnostic exams have return to determine whether the patient requires any further testing, can safely be discharged home or need further admission to hospital for additional treatment and evaluation. 8:12 p.m. labs reviewed CBC showed a white count of 7.3, hemoglobin 9.9, BNP 7 showed a BUN and creatinine of 25 and 1.3 sugar is 348. Brain natriuretic peptide is 226. Chest x-ray showed mild prominence of the pulmonary vasculature and there is platelike atelectasis at the left base. I discussed extensively with the patient and his daughter about the labs and the only abnormality being high sugar at this time. I did recommend admission and monitoring him closely for the next 24-48 hours but patient is adamant about leaving unless he has a room with the TV which at this time, the hospital is to the capacity and patients are being held in the emergency room. Medical Decision Making MDM MDM: Differential diagnosis: Dehydration, anemia, cancer-related weakness, cardiac etiology, hyperglycemia and osmotic diuresis, congestive heart failure Rationale: Tests considered and ordered secondary to shared decision making incl ude: labs, ECG and radiology Previous outside records reviewed: Old ER visits. Risk of complication and/or morbidity or mortality of patient management: None Medications-Per medication reconciliation Need for hospitalization: Patient does meet criteria for hospitalization. Need for emergency major/minor surgery: No There are no social concerns with this patient. Prescription drug management Prescriptions will include symptomatic care Patient's prior external medical records from other ER visits were reviewed by me as indicated. Prior testing and results from previous visits were reviewed. Prior tests were taken into account with medical decision making and resource utilization, independent historian/historians were used to obtain complete medical history. I independently interpreted the test that were performed, results were reviewed by me and considered findings on radiology if ordered. Medical management and examination interpretation discussions were had by me with other qualified healthcare professionals as indicated for the patient's care. Problem List Problem List: (1) Uncontrolled diabetes mellitus with hyperglycemia (2) Weakness (3) Dehydration (4) Liver cancer (5) Port-A-Cath in place (6) Chronic anemia (7) Type II diabetes mellitus, uncontrolled (8) Colon cancer DX & DISP Disposition: Discharge Decision to Admit Time: 20:15 Departure Impression: Primary Impression: Dehydration Additional Impressions: Liver cancer, Port-A-Cath in place, Morbid obesity, Uncontrolled diabetes mellitus with hyperglycemia, Colon cancer, Type II diabetes mellitus, uncontrolled, Chronic anemia, Generalized weakness Condition: Stable Additional Instructions: Patient and the caregiver have been informed of all the diagnostic tests and the imaging conducted during the today's visit to the emergency room and has verbalized understanding of the results I have personally reviewed and interpreted all diagnostic exams performed here in the ER today as well as the vital signs documented by the nursing staff. The patient is now being discharged to home and should follow up with the primary care physician or the specialist as directed by the ER staff. Follow-up with primary care provider in 1 to 2 days. Take medications as directed here in the emergency room. Okay to continue home medications unless otherwise discussed during your visit in the emergency room today. Return to your nearest emergency room if symptoms worsen or if there is no improvement. Call 911 if you need immediate assistance. Take Tylenol or Motrin [id number] as needed and if no contraindications are present. Increase oral hydration. A wound culture or urine culture was ordered here in the emergency room department please follow-up with primary care provider and advise them to get repeat ports from our facility. If you had any Gabriel wrap/splints that were applied here, please do not remove them until you see your primary care or specialty. All labs reviewed with the family and patient Referrals: RADU REYNOSO M.D. (PCP) PO HUNT MD Sep 26, 2024 19:21
[2024-09-26 19:44] LABS: HEMATOCRIT 32.5 % (42-54); IMMATURE GRANULOCYTE ABSOLUTE 0.08 K/uL (0-1); LYMPHOCYTES # (AUTO) 0.4 K/uL (1.0-4.8); LYMPHOCYTES % (AUTO) 5.4 % (21.0-51.0); MEAN CORPUSCULAR HEMOGLOBIN 26.8 pg (27.0-33.0); MEAN CORPUSCULAR HGB CONC 30.5 g/dL (32.0-36.0); MEAN CORPUSCULAR VOLUME 87.8 fL (79-99); MONOCYTES # (AUTO) 0.1 K/uL (0.1-1.0); MONOCYTES % (AUTO) 1.1 % (3.0-13.0); NEUTROPHILS # (AUTO) 6.7 K/uL (1.8-7.7); NEUTROPHILS % (AUTO) 92.4 % (40.0-77.0); PLATELET COUNT (AUTO) 210 K/uL (130-400); WHITE BLOOD COUNT (AUTO) 7.3 K/uL (4.8-10.8)
--- NOTE | 2024-09-26 19:55 | HMCIMG ---
Exam Type: CHEST 1VW Clinical Information: post chemo, generalized weakness Comparison: None Findings: Right MediPort catheter is seen in place. There is no pneumothorax. The lungs are clear of infiltrates. The heart is enlarged. Bony and soft tissue structures of the chest wall are unremarkable. IMPRESSION: Cardiomegaly. Clear lungs.
[2024-09-26 19:58] LABS: CREATININE 1.3 mg/dL (0.5-1.3); POTASSIUM 4.7 mmol/L (3.5-5.1)
[2024-09-26] MEDS: 0.9%NACL 1000ML 1,000 ML IV ONE (20:22)
[2024-09-26 21:20] LABS: WBC MORPHOLOGY CONSISTENT W/DIFF
[2024-09-26 21:29] VITALS: BP 147/72; PULSE 89; RESP 18; TEMP 98.2; O2SAT 97
--- NOTE | 2024-09-26 21:30 | NUR ---
PATIENT REFUSED TO BE ADMITTED HE WANTED TO HAE A ROOM WITH A TV CAROL CRONIN AND DR CROWLEY AWARE PT STABLE FOR DC
--- NOTE | 2024-09-27 06:21 | EKG ---
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
== END 2024-09-26 21:30 | disposition home or self-care (01) ==
LOC: EDH 18:50
DX: E86.0 Dehydration (principal); E11.65 Type 2 diabetes mellitus with hyperglycemia; C18.9 Malignant neoplasm of colon, unspecified; D64.9 Anemia, unspecified; E66.01 Morbid (severe) obesity due to excess calories; E78.00 Pure hypercholesterolemia, unspecified; Z79.1 Long term (current) use of non-steroidal anti-inflammatories (NSAID); Z79.84 Long term (current) use of oral hypoglycemic drugs; Z79.899 Other long term (current) drug therapy; Z85.05 Personal history of malignant neoplasm of liver
CPT/HCPCS: 99285; 71045; 80048; 83880; 85025; 36415; 93005; J7030; 99284

== ENCOUNTER 2024-10-24 12:34 | Emergency (ER) | payer MEDICARE ==
[~2024-10-24] VITALS: Ht 180.3 cm; Wt 127.0 kg
[~2024-10-24 12:34] MED LIST changes: -CHOL500051 PO; -FENO145T26 PO; +FURO20TA4 PO; -FURO40TA7 PO; -MELO-106 PO
[2024-10-24 12:37] VITALS: BP 122/75; PULSE 72; RESP 20; TEMP 97.4
[2024-10-24 13:09] LABS: BASOPHILS # (AUTO) 0.02 K/uL (0.00-0.20); BASOPHILS % (AUTO) 0.3 % (0.0-5.0); EOSINOPHILS # (AUTO) 0.06 K/uL (0.00-0.70); EOSINOPHILS % (AUTO) 0.8 % (0.0-8.0); HEMATOCRIT 29.1 % (42-54); IMMATURE GRANULOCYTE ABSOLUTE 0.05 K/uL (0-1); LYMPHOCYTES # (AUTO) 0.9 K/uL (1.0-4.8); LYMPHOCYTES % (AUTO) 11.4 % (21.0-51.0); MEAN CORPUSCULAR HGB CONC 30.6 g/dL (32.0-36.0); MEAN CORPUSCULAR VOLUME 88.2 fL (79-99); MONOCYTES # (AUTO) 0.5 K/uL (0.1-1.0); MONOCYTES % (AUTO) 7.1 % (3.0-13.0); NEUTROPHILS # (AUTO) 6.1 K/uL (1.8-7.7); NEUTROPHILS % (AUTO) 79.7 % (40.0-77.0); PLATELET COUNT (AUTO) 244 K/uL (130-400); RED CELL DISTRIBUTION WIDTH 17.2 % (11.0-15.5); WHITE BLOOD COUNT (AUTO) 7.6 K/uL (4.8-10.8)
[2024-10-24 13:28] LABS: CREATININE 1.5 mg/dL (0.5-1.3); POTASSIUM 5.2 mmol/L (3.5-5.1)
--- NOTE | 2024-10-24 13:49 | EKG ---
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
--- NOTE | 2024-10-24 15:01 | ERN ---
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 As per patient he had some labs drawn on Wednesday and today he was called by PCP's office to come to the ER due to having elevated potassium level. Allergies: Coded Allergies: No Known Drug Allergies (Unverified Allergy, Unknown, 08/04/22) Home Meds Active Scripts Furosemide (Furosemide) 20 Mg Tablet, 20 MG PO BID for leg edema, #60 TAB 1 Refill Prov:ISIS TREJO 10/10/24 Reported Medications Cyanocobalamin (Vitamin B-12) (B-12) 1,000 Mcg Tablet, 1 TAB PO DAILY for 30 Days, #30 TAB 0 Refills 08/22/24 Ascorbic Acid (Vitamin C) 500 Mg Capsule, 1 CAP PO DAILY for 28 Days, #28 CAP 0 Refills 08/22/24 Dapagliflozin Propanediol (Farxiga) 10 Mg Tablet, 1 TAB PO DAILY for 30 Days, #30 TAB 0 Refills 08/22/24 Gabapentin (Gabapentin) 100 Mg Capsule, 300 MG PO TID, CAP 04/14/24 Duloxetine HCl (Cymbalta) 60 Mg Capsule.dr, 60 MG PO DAILY, CAP 04/14/24 Amlodipine Besylate (Norvasc 5Mg Tab) 5 Mg Tablet, 5 MG PO DAILY, TAB 24 Rosuvastatin Calcium (Rosuvastatin Calcium) 40 Mg Tablet, 40 MG PO HS, TAB 04/14/24 Lisinopril (Lisinopril) 40 Mg Tablet, 40 MG PO DAILY, TAB 24 Memantine HCl (Memantine HCl) 10 Mg Tablet, 10 MG PO BID, TAB 24 Sitagliptin Phosphate (Januvia) 100 Mg Tablet, 100 MG PO DAILY, TAB 04/14/24 Allopurinol (Allopurinol) 100 Mg Tablet, 100 MG PO BID, TAB 24 Pioglitazone HCl (Pioglitazone HCl) 15 Mg Tablet, 15 MG PO DAILY, TAB 04/14/24 Past Medical History Past Medical History: Cancer, Diabetes-Type II, Hypertension Medical History Other: COLON CA WITH METS TO LIVER, UNKNOWN CARDIAC Past Surgical History: Other Surgical History Other: COLOSTOMY Family History Family History: Negative Social History Social History: Negative, Lives with family ROS Dictation Constitutional: Negative for fever,chills, and weight loss Eyes: Negative for injury, pain,redness, and discharge ENT: Negative for injury,pain or swelling Cardiovascular: Negative for chest pain, palpitations, and edema Respiratory: Negative for shortness of breath, cough, and wheezing, Abdomen/GI: Negative for abdominal pain, nausea, vomiting, diarrhea, and constipation Back: Negative for injury and pain : Negative for injury, bleeding and discharge MS/Extremity: Negative for injury and deformity Skin: Negative for rash, and discoloration Neuro: Negative for headache, weakness, numbness, tingling, and seizure Psych: Negative for suicide ideation, homicidal ideation, and hallucinations Physical Exam Physical Exam Dictation General: awake, alert, NAD Head/Face: Normocephalic, atraumatic Eyes: PERRL, EOMI, vision at baseline ENT: oral cavity clear, TMs clear, no signs of infection Neck: Trachea midline, supple, no nuchal rigidity Cardiovascular: RRR, normal S1/S2, No MRGs, no JVD Respiratory: CTAB, no respiratory distress, No rales or wheezes Abdomen: Soft, non-tender, non-distended, normal bowel sounds, no guarding or rebound. Skin: Warm, dry, normal turgor, no rash MS/Extremity: Pulses equal, no cyanosis, neurovascular intact, FROM Neuro: COAx4, GCS 15, strength 5/5, CN 2-12 intact, normal cerebellar exam, normal gait, Psych: Normal behavior, mood, and affect normal Results Laboratory and Microbiology Lab and Micro Result Laboratory Tests Test 10/24/24 12:59 White Blood Count 7.6 K/uL (4.8-10.8) Red Blood Count 3.30 MIL/uL (4.50-6.20) L Hemoglobin 8.9 g/dL (14.0-18.0) L Hematocrit 29.1 % (42-54) L Mean Corpuscular Volume 88.2 fL (79-99) Mean Corpuscular Hemoglobin 27.0 pg (27.0-33.0) Mean Corpuscular Hemoglobin Concent 30.6 g/dL (32.0-36.0) L Red Cell Distribution Width 17.2 % (11.0-15.5) H Platelet Count 244 K/uL (130-400) Mean Platelet Volume 9.4 fL (7.5-10.5) Immature Granulocyte % (Auto) 0.7 % (0-1) Neutrophils (%) (Auto) 79.7 % (40.0-77.0) H Lymphocytes (%) (Auto) 11.4 % (21.0-51.0) L Monocytes (%) (Auto) 7.1 % (3.0-13.0) Eosinophils (%) (Auto) 0.8 % (0.0-8.0) Basophils (%) (Auto) 0.3 % (0.0-5.0) Neutrophils # (Auto) 6.1 K/uL (1.8-7.7) Lymphocytes # (Auto) 0.9 K/uL (1.0-4.8) L Monocytes # (Auto) 0.5 K/uL (0.1-1.0) Eosinophils # (Auto) 0.06 K/uL (0.00-0.70) Basophils # (Auto) 0.02 K/uL (0.00-0.20) Absolute Immature Granulocyte (auto 0.05 K/uL (0-1) Nucleated Red Blood Cells 0.0 % (0.0-0.19) Red Blood Cell Morphology See comments Sodium Level 138 mmol/L (136-145) Potassium Level 5.2 mmol/L (3.5-5.1) H Chloride Level 101 mmol/L (101-111) Carbon Dioxide Level 28 mmol/L (21-32) Blood Urea Nitrogen 38 mg/dL (7-18) H Creatinine 1.5 mg/dL (0.5-1.3) H Glomerular Filtration Rate Calc 51 mL/min (>90) Random Glucose 229 mg/dL (70-105) H Total Calcium 9.6 mg/dL (8.5-10.1) Troponin I High Sensitivity 18 ng/L (4-75) B-Type Natriuretic Peptide 50 pg/mL (0-100) Labs Reviewed?: Yes MDM MDM: Differential diagnosis: Hyperkalemia, ACS, electrolyte abnormality, dehydration Rationale: Tests considered and ordered secondary to shared decision making include: Previous outside records reviewed: Old ER visits. Risk of complication and/or morbidity or mortality of patient management: None Medications-Per medication reconciliation Need for hospitalization: Patient does meet criteria for hospitalization. Need for emergency major/minor surgery: No There are no social concerns with this patient. Prescription drug management Prescriptions will include symptomatic care Patient's prior external medical records from other ER visits were reviewed by me as indicated. Prior testing and results from previous visits were reviewed. Prior tests were taken into account with medical decision making and resource utilization, independent historian/historians were used to obtain complete medical history. I independently interpreted the test that were performed, results were reviewed by me and considered findings on radiology if ordered. Medical management and examination interpretation discussions were had by me with other qualified healthcare professionals as indicated for the patient's care. ED Course Orders Procedure Category Date Status Time 12 Lead Ekg Tracing- EKG 10/24/24 Resulted Technical 12:50 Cbc With Differential LAB 10/24/24 Complete 12:50 Basic Metabolic Panel LAB 10/24/24 Complete 12:50 B-Type Natriuretic LAB 10/24/24 Complete Peptide 15:27 Troponin I High LAB 10/24/24 Complete Sensitivity 15:27 Vital Signs Date Time Temp Pulse Resp B/P (MAP) Pulse Ox O2 Delivery O2 Flow Rate FiO2 10/24/24 12:37 97.3 72 20 122/75 99 Room Air 0 DX & DISP Disposition: AMA (Signed out against medical advice at 3:34 p.m.) Departure Impression: Primary Impression: Hyperkalemia Additional Impressions: Chronic anemia, H/O colon cancer, stage IV Condition: Stable Referrals: RADU REYNOSO M.D. (PCP) I have reviewed the case, and I agree with, Diagnosis and Plan I performed the substantive portion of the visit. I have reviewed and personally made and approve the management plan that is documented in the note by myself or the EUFEMIA. I acknowledge for responsibility for the patient's management plan. I personally scribed for CAIO HSORT ([facility]) on 10/24/24 at 15:00. Electronically submitted by Love Martin ([facility]). CAIO SHORT Oct 24, 2024 15:00
== END 2024-10-24 15:42 | disposition left against medical advice (07) ==
LOC: EDH 12:34
DX: E87.5 Hyperkalemia (principal); D64.9 Anemia, unspecified; E11.9 Type 2 diabetes mellitus without complications; I10 Essential (primary) hypertension; Z79.84 Long term (current) use of oral hypoglycemic drugs; Z79.899 Other long term (current) drug therapy; Z85.038 Personal history of other malignant neoplasm of large intestine
CPT/HCPCS: 36415; 80048; 83880; 84484; 85025; 93005; 99284

== ENCOUNTER 2024-10-26 22:18 | Observation (INO) | payer MEDICARE ==
[~2024-10-26] VITALS: Ht 180.3 cm; Wt 124.7 kg
[2024-10-26 23:02] LABS: BASOPHILS # (AUTO) 0.03 K/uL (0.00-0.20); BASOPHILS % (AUTO) 0.4 % (0.0-5.0); EOSINOPHILS # (AUTO) 0.06 K/uL (0.00-0.70); EOSINOPHILS % (AUTO) 0.9 % (0.0-8.0); HEMATOCRIT 29.1 % (42-54); IMMATURE GRANULOCYTE ABSOLUTE 0.09 K/uL (0-1); LYMPHOCYTES % (AUTO) 13.9 % (21.0-51.0); MEAN CORPUSCULAR HEMOGLOBIN 26.3 pg (27.0-33.0); MEAN CORPUSCULAR HGB CONC 29.9 g/dL (32.0-36.0); MEAN CORPUSCULAR VOLUME 87.9 fL (79-99); MONOCYTES # (AUTO) 0.5 K/uL (0.1-1.0); MONOCYTES % (AUTO) 6.6 % (3.0-13.0); NEUTROPHILS # (AUTO) 5.3 K/uL (1.8-7.7); NEUTROPHILS % (AUTO) 76.9 % (40.0-77.0); PLATELET COUNT (AUTO) 233 K/uL (130-400); RED BLOOD CELL COUNT(AUTO) 3.31 MIL/uL (4.50-6.20); RED CELL DISTRIBUTION WIDTH 17.8 % (11.0-15.5); WHITE BLOOD COUNT (AUTO) 6.9 K/uL (4.8-10.8)
[2024-10-26 23:15] LABS: CREATININE 1.6 mg/dL (0.5-1.3); POTASSIUM 5.1 mmol/L (3.5-5.1)
[2024-10-27] VITALS (10 sets, daily range): BP systolic 120–138; BP diastolic 58–77; PULSE 52–65; RESP 16–20; TEMP 97.5–97.8; O2SAT 98–99
[2024-10-27 00:02] LABS: APPEARANCE,URINE CLEAR (CLEAR); BACTERIA,URINE FEW /HPF (None Seen); BILIRUBIN,URINE NEGATIVE (NEGATIVE); COLOR,URINE LIGHT-YELLOW (YELLOW); GLUCOSE, URINE (UA) >=1000 mg/dL (NEGATIVE); KETONES,URINE NEGATIVE (NEGATIVE); LEUKOCYTE ESTERASE ,URINE NEGATIVE Leu/uL (NEGATIVE); MUCUS,URINE RARE LPF (None Seen); NITRATE,URINE NEGATIVE (NEGATIVE); OCCULT BLOOD,URINE NEGATIVE (NEGATIVE); PROTEIN,URINE 20 mg/dL (NEGATIVE); SQUAMOUS EPITHELIAL CELL,UR RARE /HPF (0-2); UROBILINOGEN,URINE 0.2 mg/dL (0.2-1.0)
--- NOTE | 2024-10-27 00:13 | HMCIMG ---
CT HEAD/BRAIN W/O CONTRAST HISTORY: Syncope COMPARISON: None TECHNIQUE: Multiple sequential axial images of the head were obtained from the base of the skull through vertex. Patient was not given contrast through intravenous route. FINDINGS: The ventricles and extraventricular CSF spaces are nondilated for patient's age. There is no midline shift, mass effect or herniation. No acute intracranial bleed is seen. Visualized portion of the paranasal sinuses are grossly within normal limits. IMPRESSION: 1. No acute intracranial bleed is seen. CT was performed with one or more following dose reduction techniques: automated exposure control, adjustment of the mA and kv according to patient's size, or use of a iterative reconstruction technique.
[2024-10-27] MEDS ORDERED: hydrALAZine 20MG/ML VIAL IV PRN (01:30)
[2024-10-27] MEDS ORDERED: ALBUTEROL 0.083% 2.5 MG/3 ML INH IH PRN (01:30)
[2024-10-27] MEDS ORDERED: acetaMINOPHEN 325 MG TAB PO PRN (01:30)
[2024-10-27] MEDS ORDERED: LAbetaLOL 20MG SYG IV PRN (01:30)
[2024-10-27] MEDS ORDERED: acetaMINOPHEN 650 MG SUPPOSITORY RC PRN (01:30)
[2024-10-27 02:07] LABS: THYROID STIMULATING HORMONE 4.47 uIU/mL (0.36-3.74)
--- NOTE | 2024-10-27 02:23 | ERN ---
General Chief Complaint: Weakness Stated Complaint: SYNCOPE Time Seen by MD: 22:30 Time Seen by Midlevel: 22:30 Source: patient, family, EMS History of Present Illness Initial Comments 64-year-old male who presents to the ED by EMS due to syncopal episode. Patient reports he was walking from the table to his room and felt his legs give out does not recall what happened. Per family they state patient got to the couch fainted. PMHx DM, HTN, anemia, liver cancer, abdominal wall cancer, colon cancer with colostomy bag in place. Family member reports patient was admitted at the beginning of the month and initiated on furosemide due to fluid retention around the heart and in the lungs. Patient reports bilateral leg swelling and pain but denies any chest pain, shortness of breath, fever or further associated symptoms. Allergies: Coded Allergies: No Known Drug Allergies (Unverified Allergy, Unknown, 08/04/22) Home Meds Active Scripts Furosemide (Furosemide) 20 Mg Tablet, 20 MG PO BID for leg edema, #60 TAB 1 Refill Prov:ISIS TREJO 10/10/24 Reported Medications Cyanocobalamin (Vitamin B-12) (B-12) 1,000 Mcg Tablet, 1 TAB PO DAILY for 30 Days, #30 TAB 0 Refills 08/22/24 Ascorbic Acid (Vitamin C) 500 Mg Capsule, 1 CAP PO DAILY for 28 Days, #28 CAP 0 Refills 08/22/24 Dapagliflozin Propanediol (Farxiga) 10 Mg Tablet, 1 TAB PO DAILY for 30 Days, #30 TAB 0 Refills 08/22/24 Gabapentin (Gabapentin) 100 Mg Capsule, 300 MG PO TID, CAP 04/14/24 Duloxetine HCl (Cymbalta) 60 Mg Capsule.dr, 60 MG PO DAILY, CAP 04/14/24 Amlodipine Besylate (Norvasc 5Mg Tab) 5 Mg Tablet, 5 MG PO DAILY, TAB 04/14/24 Rosuvastatin Calcium (Rosuvastatin Calcium) 40 Mg Tablet, 40 MG PO HS, TAB 04/14/24 Lisinopril (Lisinopril) 40 Mg Tablet, 40 MG PO DAILY, TAB 24 Memantine HCl (Memantine HCl) 10 Mg Tablet, 10 MG PO BID, TAB 04/14/24 Sitagliptin Phosphate (Januvia) 100 Mg Tablet, 100 MG PO DAILY, TAB 04/14/24 Allopurinol (Allopurinol) 100 Mg Tablet, 100 MG PO BID, TAB 04/14/24 Pioglitazone HCl (Pioglitazone HCl) 15 Mg Tablet, 15 MG PO DAILY, TAB 04/14/24 Past Medical History Past Medical History: Cancer, Diabetes-Type II, Hypertension Medical History Other: COLON CA WITH METS TO LIVER, UNKNOWN CARDIAC Past Surgical History: Other Surgical History Other: COLOSTOMY Family History Family History: Negative Social History Social History: Negative, Lives with family ROS Dictation Constitutional: Negative for fever,chills, and weight loss Eyes: Negative for injury, pain,redness, and discharge ENT: Negative for injury,pain or swelling Cardiovascular: Negative for chest pain, palpitations, and edema Respiratory: Negative for shortness of breath, cough, and wheezing, Abdomen/GI: Negative for abdominal pain, nausea, vomiting, diarrhea, and constipation Back: Negative for injury and pain : Negative for painful urination, bleeding or discharge MS/Extremity: Positive for bilateral leg Negative for injury and deformity Skin: Negative for rash, and discoloration Neuro: Positive for syncopal episode Negative for headache, weakness, numbness, tingling, and seizure Psych: Negative for suicide ideation, homicidal ideation, and hallucinations Physical Exam Physical Exam Dictation General: awake, alert, no acute distress Head/Face: Normocephalic, atraumatic Eyes: PERRL, EOMI, normal conjunctiva ENT: oral cavity clear, oral mucosa moist Neck: Normal range of motion Cardiovascular: RRR, normal S1/S2, bilateral pitting edema Respiratory: CTAB, no respiratory distress, no rales or wheezes Abdomen: Soft, non-tender, non-distended, no guarding or rebound, colostomy bag in place Skin: Warm, dry, normal turgor, no rash MS/Extremity: Pulses equal, no cyanosis, neurovascular intact, FROM Neuro: COAx4, GCS 15, no neurological deficits Psych: Normal behavior, mood, and affect normal Results Laboratory and Microbiology Lab and Micro Result Laboratory Tests Test 10/26/24 22:56 10/26/24 23:35 White Blood Count 6.9 K/uL (4.8-10.8) Red Blood Count 3.31 MIL/uL (4.50-6.20) L Hemoglobin 8.7 g/dL (14.0-18.0) L Hematocrit 29.1 % (42-54) L Mean Corpuscular Volume 87.9 fL (79-99) Mean Corpuscular Hemoglobin 26.3 pg (27.0-33.0) L Mean Corpuscular Hemoglobin Concent 29.9 g/dL (32.0-36.0) L Red Cell Distribution Width 17.8 % (11.0-15.5) H Platelet Count 233 K/uL (130-400) Mean Platelet Volume 8.9 fL (7.5-10.5) Immature Granulocyte % (Auto) 1.3 % (0-1) H Neutrophils (%) (Auto) 76.9 % (40.0-77.0) Lymphocytes (%) (Auto) 13.9 % (21.0-51.0) L Monocytes (%) (Auto) 6.6 % (3.0-13.0) Eosinophils (%) (Auto) 0.9 % (0.0-8.0) Basophils (%) (Auto) 0.4 % (0.0-5.0) Neutrophils # (Auto) 5.3 K/uL (1.8-7.7) Lymphocytes # (Auto) 1.0 K/uL (1.0-4.8) Monocytes # (Auto) 0.5 K/uL (0.1-1.0) Eosinophils # (Auto) 0.06 K/uL (0.00-0.70) Basophils # (Auto) 0.03 K/uL (0.00-0.20) Absolute Immature Granulocyte (auto 0.09 K/uL (0-1) Nucleated Red Blood Cells 0.0 % (0.0-0.19) Sodium Level 137 mmol/L (136-145) Potassium Level 5.1 mmol/L (3.5-5.1) Chloride Level 103 mmol/L (101-111) Carbon Dioxide Level 23 mmol/L (21-32) Blood Urea Nitrogen 48 mg/dL (7-18) H Creatinine 1.6 mg/dL (0.5-1.3) H Glomerular Filtration Rate Calc 48 mL/min (>90) Random Glucose 267 mg/dL (70-105) H Total Calcium 9.2 mg/dL (8.5-10.1) Troponin I High Sensitivity 17 ng/L (4-75) Urine Color LIGHT-YELLOW (YELLOW) Urine Appearance CLEAR (CLEAR) Urine pH 5.0 (5.0-8.0) Urine Specific [place] 1.016 (1.001-1.031) Urine Protein 20 mg/dL (NEGATIVE) H Urine Glucose (UA) >=1000 mg/dL (NEGATIVE) H Urine Ketones NEGATIVE mg/dL (NEGATIVE) Urine Occult Blood NEGATIVE (NEGATIVE) Urine Nitrate NEGATIVE (NEGATIVE) Urine Bilirubin NEGATIVE mg/dL (NEGATIVE) Urine Urobilinogen 0.2 mg/dL (0.2-1.0) Urine Leukocyte Esterase NEGATIVE Beti/uL Urine RBC 2-5 /HPF (0-1) H Urine WBC 2-5 /HPF (0-1) H Urine Squamous Epithelial Cells RARE /HPF (0-2) Urine Bacteria FEW /HPF (None Seen) Labs Reviewed?: Yes EKG/XRAY/US/CT/MRI EKG Comment Date: 10/26/2024 Time: 23: 23 Rate: 76 EKG interpretation: Sinus rhythm, nonspecific T wave abnormalities, no STEMI Reviewed by ED Attending CT Scan Comment REASON: Syncope, + LOC ORDERING PHYSICIAN: JOSE ALEJANDRO EARL PROCEDURE: HEAD WO - CT HEAD/BRAIN W/O CONTRAST CT HEAD/BRAIN W/O CONTRAST HISTORY: Syncope COMPARISON: None TECHNIQUE: Multiple sequential axial images of the head were obtained from the base of the skull through vertex. Patient was not given contrast through intravenous route. FINDINGS: The ventricles and extraventricular CSF spaces are nondilated for patient's age. There is no midline shift, mass effect or herniation. No acute intracranial bleed is seen. Visualized portion of the paranasal sinuses are grossly within normal limits. IMPRESSION: 1. No acute intracranial bleed is seen. CT was performed with one or more following dose reduction techniques: automated exposure control, adjustment of the mA and kv according to patient's size, or use of a iterative reconstruction technique. MDM MDM: Differential diagnosis: Vasovagal syncope, arrhythmia, volume overload, closed head injury, anemia Rationale: 64-year-old male who presents to the ED by EMS due to syncopal episode. Patient reports he was walking from the table to his room and felt his legs give out does not recall what happened. Per family they state patient got to the couch fainted. PMHx DM, HTN, anemia, liver cancer, abdominal wall cancer, colon cancer with colostomy bag in place. Family member reports patient was admitted at the beginning of the month and initiated on furosemide due to fluid retention around the heart and in the lungs. Patient reports bilateral leg swelling and pain but denies any chest pain, shortness of breath, fever or further associated symptoms. Labs obtained indicate BUN 48 and creatinine 1.6 which indicates DERRICK compared with labs from 10/10/[address] head obtained with no indications of acute intracranial abnormalities. Patient and family member were educated on findings and diagnosis. Admission discussed with patient and family who verbalized understanding and agree. Case was discussed with hospitalist who accepted admission. Previous outside records reviewed: Old ER visits. Risk of complication and/or morbidity or mortality of patient management: None Medications-Per medication reconciliation Need for hospitalization: Patient does meet criteria for hospitalization. Need for emergency major/minor surgery: No There are no social concerns with this patient. Prescription drug management Prescriptions will include symptomatic care Patient's prior external medical records from other ER visits were reviewed by me as indicated. Prior testing and results from previous visits were reviewed. Prior tests were taken into account with medical decision making and resource utilization, independent historian/historians were used to obtain complete medical history. I independently interpreted the test that were performed, results were reviewed by me and considered findings on radiology if ordered. Medical management and examination interpretation discussions were had by me with other qualified healthcare professionals as indicated for the patient's care. ED Course Orders Procedure Category Date Status Time Cbc With Differential LAB 10/26/24 Complete 22:30 Basic Metabolic Panel LAB 10/26/24 Complete 22:30 Urinalysis LAB 10/26/24 Complete W/Microscopic 22:30 Troponin I High LAB 10/26/24 Complete Sensitivity 22:30 12 Lead Ekg Tracing- EKG 10/26/24 Logged Technical 22:30 Ct Head/Brain W/O CT 10/26/24 Resulted Contrast 23:04 Vital Signs Date Time Temp Pulse Resp B/P (MAP) Pulse Ox O2 Delivery O2 Flow Rate FiO2 10/26/24 23:33 98.1 83 19 128/39 100 Room Air* 0 21 10/26/24 22:21 98.1 75 16 147/55 99 Room Air 0 Critical Care Note Critical Time: 30 minutes Comments Critical Care Procedure Note Authorized and Performed by: me Total critical care time: Approximately 36 minutes Due to a high probability of clinically significant, life threatening deterioration, the patient required my highest level of preparedness to intervene emergently and I personally spent this critical care time directly and personally managing the patient. This critical care time included obtaining a history; examining the patient; pulse oximetry; ordering and review of studies; arranging urgent treatment with development of a management plan; evaluation of patient's response to treatment; frequent reassessment; and, discussions with other providers. This critical care time was performed to assess and manage the high probability of imminent, life-threatening deterioration that could result in multi-organ failure. It was exclusive of separately billable procedures and treating other patients and teaching time. Please see MDM section and the rest of the note for further information on patient assessment and treatment. DX & DISP Disposition: Inpatient Decision to Admit Date: Oct 27, 2024 Departure Impression: Primary Impression: Syncopal episodes Additional Impressions: DERRICK (acute kidney injury), Anemia Condition: Stable Referrals: RADU REYNOSO M.D. (PCP) I participated in the following activities of this patient's care: For this patient encounter, I reviewed the PA or VITICULTURE TEACHER documentation, treatment plan, and medical decision making. I did not have [id number] time with this patient. I will sign as the reviewing DrAsher And agree with the treatment plan and disposition. JOSE ALEJANDRO EARL Oct 27, 2024 02:23
[2024-10-27] MEDS: 0.9%NACL 1000ML 1,000 ML IV SCH (03:28)
--- NOTE | 2024-10-27 05:36 | EKG ---
[facility] Test Date: 2024-10-26 Test Time: 23:23:13 Pat Name: RAFAT DANGELO Department: [facility] Room: 329 Gender: M Pilates Coordinator: [id number] : 1960 Requested By: JOSE ALEJANDRO EARL Order Number: [id number] Reading MD: Meliton Higgins Measurements Intervals [place] Rate: 76 P: 41 MD: 158 QRS: 17 QRSD: 89 T: 204 QT: 360 QTc: 406 Interpretive Statements Sinus rhythm Nonspecific T abnormalities, lateral leads Compared to ECG 10/24/2024 12:34:55 T-wave abnormality now present Electronically Signed On 10-27-2024 19:36:29 MANAGER IMAGING by Meliton Higgins Please click the below link to view image of tracing.
--- NOTE | 2024-10-27 07:14 | NUR ---
Report given to Jeana WONG at this time./ELYSSA
--- NOTE | 2024-10-27 08:51 | HMCIMG ---
US CAROTID DUPLEX HISTORY: Syncope COMPARISON: None TECHNIQUE: Duplex carotid arterial Doppler ultrasound study was performed. FINDINGS: The common, internal and external carotid arteries are visualized. The peak systolic velocities of right common carotid artery is 98 centimeters per second, right internal carotid artery is 113 centimeters per second, right external carotid artery is 109 centimeters per second, and right vertebral artery is 59 centimeters per second. Right internal carotid artery to right common carotid artery ratio is 1.1. Right vertebral artery is seen with antegrade flow. The peak systolic velocities of left common carotid artery is 123 centimeters per second, left internal carotid artery is 128 centimeters per second, left external carotid artery is 116 centimeters per second, and left vertebral artery is 57 centimeters per second. Left internal carotid artery to left common carotid artery ratio is 1.0. Left vertebral artery is seen with antegrade flow. There are bilateral echogenic plaques. IMPRESSION: 1. No hemodynamically significant lesion is seen of either extracranial carotid artery system.
--- NOTE | 2024-10-27 10:21 | HP ---
[facility] HISTORY & PHYSICAL Date Patient Seen: Oct 27, 2024 Time of Visit: 10:13 Supervising Physician: Dr Yi Primary Care Physician: Dr. Marlys Antony Outpatient Specialists:Dr. Andrews/ [facility], Dr. Hernandez/ oncology Inpatient Consults: [ ] PROBLEM LIST: Syncope Chronic preserved EF heart failure- without exacerbation Type 2 diabetes with hyperglycemia- hemoglobin A1c of 8.7 Normocytic hypochromic anemia Primary hypertension Hypothyroidism Obesity BMI of 39 Colon cancer metastasized to liver History of hypertension, diabetes mellitus, hyperlipidemia, colon cancer metastasized to the liver post resection colostomy and chemotherapy (last dose 10/24) HPI: Mr. Simon Cr is a 64 year old male with a past medical history of hypertension, diabetes, hyperlipidemia, colon cancer with Mets to liver, post colon resection, colostomy creation and chemotherapy presents to emergency room with chief complaint of syncopal episode with an onset of yesterday evening. Patient reports he was eating dinner and as he got up from a chair to go to his bedroom his legs became very weak and felt dizzy and that is all he remembers. Patient reports next thing he remembers is getting lifted from the floor and being brought to the hospital. Patient reports he does have had these episodes in the past however has been quite some time since this has happened. Patient reports he is currently receiving chemotherapy in his last dose was October [address] Luis. Patient denies fevers, chills, shortness for breath, chest pain, nausea, vomiting, abdominal pain. Admission vital signs are temperature 98.1 C, heart rate 75 beats per minute, respiratory rate 16 breaths per minute, blood pressure 147/55, O2 sat 99% on room air. Admission labs show anemia with an H&H of 8.7/21.1. Chemistries within normal limits. Troponins negative. UA negative. CT of the head showed bleed. Patient will be admitted for a syncopal episode. PAST MEDICAL HX: see above PAST SURGICAL HX: noncontributory SOCIAL HISTORY: No tobacco, ETOH, or illicit drug use Coded Allergies: No Known Drug Allergies (Unverified Allergy, Unknown, 08/04/22) REVIEW OF SYSTEMS: 12 point ROS reviewed with patient. Pertinent positives mentioned above. Otherwise negative. PHYSICAL EXAM: GENERAL: alert, weak, awake oriented x 3 HEENT: EOMI, Sclera non icteric, moist mucosa NECK: Supple, no JVD, trachea midline LUNGS: Clear breath sounds bilaterally. No wheezes HEART: Regular rate and rhythm. Normal S1 and S2, without murmurs ABD: Abdomen soft, nontender. Bowel sounds present EXT: No clubbing cyanosis or edema NEURO: Alert and oriented to person, follows commands Vital Signs (last 8hr) Date Time Temp Pulse Resp B/P (MAP) Pulse Ox O2 Delivery O2 Flow Rate FiO2 10/27/24 08:25 97.9 56 17 134/60 98 Room Air* 0 21 10/27/24 05:45 98.2 52 17 140/59 100 Room Air* 0 21 LABS: Hematology Labs: Test 10/26/24 22:56 Range/Units White Blood Count 6.9 4.8-10.8 K/uL Red Blood Count 3.31 L 4.50-6.20 MIL/uL Hemoglobin 8.7 L 14.0-18.0 g/dL Hematocrit 29.1 L 42-54 % Mean Corpuscular Volume 87.9 79-99 fL Mean Corpuscular Hemoglobin 26.3 L 27.0-33.0 pg Mean Corpuscular Hemoglobin Concent 29.9 L 32.0-36.0 g/dL Red Cell Distribution Width 17.8 H 11.0-15.5 % Platelet Count 233 130-400 K/uL Mean Platelet Volume 8.9 7.5-10.5 fL Immature Granulocyte % (Auto) 1.3 H 0-1 % Neutrophils (%) (Auto) 76.9 40.0-77.0 % Lymphocytes (%) (Auto) 13.9 L 21.0-51.0 % Monocytes (%) (Auto) 6.6 3.0-13.0 % Eosinophils (%) (Auto) 0.9 0.0-8.0 % Basophils (%) (Auto) 0.4 0.0-5.0 % Neutrophils # (Auto) 5.3 1.8-7.7 K/uL Lymphocytes # (Auto) 1.0 1.0-4.8 K/uL Monocytes # (Auto) 0.5 0.1-1.0 K/uL Eosinophils # (Auto) 0.06 0.00-0.70 K/uL Basophils # (Auto) 0.03 0.00-0.20 K/uL Absolute Immature Granulocyte (auto 0.09 0-1 K/uL Nucleated Red Blood Cells 0.0 0.0-0.19 % Chemistry Labs: Test 10/27/24 01:25 10/26/24 22:56 Range/Units Ionized Calcium 1.20 1.16-1.32 MMOL/L Iron Level 56 #L 65-175 mcg/dL Total Iron Binding Capacity 254 250-450 mcg/dL Percent Iron Saturation 22.0 L 30-44 % Transferrin 186 L 212-360 MG/DL Ferritin 594 H 30-400 ng/mL Thyroid Stimulating Hormone (TSH) 4.47 H 0.36-3.74 uIU/mL Sodium Level 137 136-145 mmol/L Potassium Level 5.1 3.5-5.1 mmol/L Chloride Level 103 101-111 mmol/L Carbon Dioxide Level 23 21-32 mmol/L Blood Urea Nitrogen 48 H 7-18 mg/dL Creatinine 1.6 H 0.5-1.3 mg/dL Glomerular Filtration Rate Calc 48 >90 mL/min Random Glucose 267 H 70-105 mg/dL Total Calcium 9.2 8.5-10.1 mg/dL Troponin I High Sensitivity 17 4-75 ng/L B-Type Natriuretic Peptide 34 0-100 pg/mL DIAGNOSTICS / RADIOLOGY RESULTS: PATIENT: SIMON RC JR MR#: [id number] : 1960 SEX: M AGE: 64 LOCATION: [facility] ORDER 05 STATUS: [facility] REPORT#: [id number] SERVICE 03 REASON: Syncope, + LOC ORDERING PHYSICIAN: JOSE ALEJANDRO EARL PROCEDURE: HEAD WO - CT HEAD/BRAIN W/O CONTRAST CT HEAD/BRAIN W/O CONTRAST HISTORY: Syncope COMPARISON: None TECHNIQUE: Multiple sequential axial images of the head were obtained from the base of the skull through vertex. Patient was not given contrast through intravenous route. FINDINGS: The ventricles and extraventricular CSF spaces are nondilated for patient's age. There is no midline shift, mass effect or herniation. No acute intracranial bleed is seen. Visualized portion of the paranasal sinuses are grossly within normal limits. IMPRESSION: 1. No acute intracranial bleed is seen. CT was performed with one or more following dose reduction techniques: automated exposure control, adjustment of the mA and kv according to patient's size, or use of a iterative reconstruction technique. DICTATED BY: RUBEN WAY MD DATE: 10/27/249 ELECTRONICALLY SIGNED BY: RUBEN WAY MD DATE: 10/27/2412 PLAN Supplemental oxygen as needed Telemetry monitoring Monitoring neuro checks closely and obtain a stat MRI if change in LOC is noted CT of the head Obtain 2D echo Bilateral carotid Dopplers Orthostatic vital signs PT evaluate and treat NEURO: Minimize central acting medications as possible. Maintain fall precautions, adequate lighting during the day PULMONARY: Supplemental 02 as needed. Maintain aspiration precautions at all times CARDIOVASCULAR: Follow hemodynamics. Vital signs per facility protocol GI & NUTRITION: Continue with nutritional support. Continue stool softeners and laxatives as needed. KIDNEYS & ELECTROLYTES: Strict monitoring of intake, output and overall fluid balance. Avoid nephrotoxic medications to the extent possible. Medications to be dosed according to renal function. Monitor electrolytes and replace as needed ENDOCRINE: Maintain blood glucose between 100-180 at all times. Hypoglycemia protocol in place INFECTIOUS DISEASE: Trend temperature, WBC and procalcitonin level Follow cultures, deescalate antibiotics as soon as possible. Panculture if new onset fever ONCOLOGY/HEMATOLOGY/COAGULATION: Monitor for s/s of bleeding Monitor hemoglobin, coagulation studies as needed SKIN: Pressure ulcer prevention per facility protocol Specialty mattress ORTHO/REHAB: Continue PT/OT Prophylaxis: Continue GI and DVT prophylaxis Code Status: Full Resuscitation Disposition: Home once medically stable for discharge Other: Total patient care time exceeds 35 minutes excluding all procedures. ATTESTATION BY PHYSICIAN I have evaluated the patient chart, medical records, and spoke with appropriate staff. I reviewed the documentation, medical decision making, and treatment plan as noted by the mid-level provider above. I agree with the findings and plan of care. De Yi MD, ECTOR N NP Oct 27, 2024 10:21
--- NOTE | 2024-10-27 11:08 | HMCIMG ---
MR BRAIN WO CON HISTORY: Syncope COMPARISON: None TECHNIQUE: MRI of the brain was performed utilizing multiple pulse sequences in axial, coronal and sagittal planes. Patient was not given contrast through intravenous route. FINDINGS: The ventricles and extraventricular CSF spaces are nondilated for patient's age. There is no midline shift, mass effect or herniation. No subacute hemorrhage is seen. No MR evidence of acute infarct is seen in the diffusion weighted images. Cerebellar tonsils are in normal position. No evidence of mucoperiosteal thickening is seen of the visualized paranasal sinuses. No MR evidence of a mass lesion is seen in this noncontrast study. IMPRESSION: 1. No MR evidence of acute infarct is seen in the diffusion weighted images.
[2024-10-27] MEDS: PANTOPrazole 40 MG/VIAL IVP SCH (11:55)
--- NOTE | 2024-10-27 12:52 | NUR ---
DCP:HOME Pt and Raven Cr [id number], live in home the rent. Pt states he is independent of his ADLS, pt has a cane, walker and shower chair at home. No hh or HD. PCP is Mitra Antony and uses [facility] for rx. Denies need for SNF or referral at this time. DCP is home Addendum: 10/27/24 at 1253 by PIEDAD DENISE Amended: Links added.
[2024-10-27] MEDS ORDERED: PANT40TA54 PO (14:23)
[2024-10-27] MEDS ORDERED: INSU100I35 SQ ×2 (14:24)
[2024-10-27] MEDS: INSULIN humuLIN R 100 UNIT/ML 3ML SQ SCH (16:50)
[2024-10-27] MEDS: atorVAStatin 40 MG TABLET PO SCH (20:05)
[2024-10-27] MEDS: alloPURInol 100 MG TABLET PO SCH (20:05)
[2024-10-27] MEDS: MEMANtine HCL 5 MG TABLET PO SCH (20:05)
[2024-10-27] MEDS: furoSEMIDE 20 MG TABLET PO SCH (20:05)
--- NOTE | 2024-10-27 20:10 | NUR ---
MEDS SHIFT ASSESSMENT DONE, PLEASE REFER TO CHART. PT VERBALIZES HAVING INSOMNIA AND WANTS TO TAKE SLEEPING PILL TONIGHT. PT TAKING MELATONIN AT HOME. ASSURED TO ASK PRACTITIONER FOR MED. DUE MEDS ADMINISTERED, TOLERATED WELL. KEPT RESTED AND COMFORTABLE IN BED. CALL LIGHT WITHIN REACH. FAMILY AT BEDSIDE.
--- NOTE | 2024-10-27 21:17 | NUR ---
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 NO HIRAM CALLED BACK AND REFERRED PT'S REQUEST FOR SLEEPING MED. NEW MED ORDER RECEIVED, PLEASE REFER TO CPOE. WILL MEDICATE PT.
[2024-10-27] MEDS: MELATONIN 5 MG TABLET PO PRN (21:44)
[2024-10-28 04:00] VITALS: BP 150/63; PULSE 65; RESP 16; TEMP 98
[2024-10-28 04:31] LABS: BASOPHILS # (AUTO) 0.03 K/uL (0.00-0.20); BASOPHILS % (AUTO) 0.4 % (0.0-5.0); EOSINOPHILS # (AUTO) 0.09 K/uL (0.00-0.70); EOSINOPHILS % (AUTO) 1.3 % (0.0-8.0); HEMATOCRIT 29.1 % (42-54); IMMATURE GRANULOCYTE ABSOLUTE 0.04 K/uL (0-1); LYMPHOCYTES # (AUTO) 0.8 K/uL (1.0-4.8); LYMPHOCYTES % (AUTO) 12.1 % (21.0-51.0); MEAN CORPUSCULAR HEMOGLOBIN 25.7 pg (27.0-33.0); MEAN CORPUSCULAR HGB CONC 29.6 g/dL (32.0-36.0); MEAN CORPUSCULAR VOLUME 87.1 fL (79-99); MONOCYTES # (AUTO) 0.5 K/uL (0.1-1.0); MONOCYTES % (AUTO) 6.6 % (3.0-13.0); NEUTROPHILS # (AUTO) 5.4 K/uL (1.8-7.7); PLATELET COUNT (AUTO) 236 K/uL (130-400); RED BLOOD CELL COUNT(AUTO) 3.34 MIL/uL (4.50-6.20); RED CELL DISTRIBUTION WIDTH 17.4 % (11.0-15.5); WHITE BLOOD COUNT (AUTO) 6.8 K/uL (4.8-10.8)
[2024-10-28 04:46] LABS: CREATININE 1.4 mg/dL (0.5-1.3); MAGNESIUM 2.5 mg/dL (1.80-2.40); PHOSPHORUS 5.7 mg/dL (2.5-4.9); POTASSIUM 5.6 mmol/L (3.5-5.1)
--- NOTE | 2024-10-28 06:10 | NUR ---
MEDS PT'S INSULIN DOSE ADMINISTERED, TOLERATED WELL. PT ABLE TO AMBULATE TO THE BATHROOM TO EMPTY HIS COLOSTOMY BAG THEN BACK TO BED WITHOUT ANY DISCOMFORT NOR DIZZINESS. KEPT RESTED IN BED. FOR MORE CARE.
[2024-10-28 07:32] VITALS: PULSE 55; RESP 19; O2SAT 98
[2024-10-28 08:00] VITALS: BP 143/70; PULSE 61; RESP 18; TEMP 97.5; O2SAT 99
[2024-10-28] MEDS: kayEXALate 15GM/60ML PO ONE (08:47)
[2024-10-28] MEDS: CYANOCOBALAMIN (VITAMIN B-12) 1,000 MCG TABLET PO SCH (08:48)
[2024-10-28] MEDS: ASCORBIC ACID 500 MG TAB PO SCH (08:48)
[2024-10-28] MEDS: EMPAGLIFLOZIN 25MG TABLET PO SCH (08:48)
[2024-10-28] MEDS ORDERED: SODI10PO2 PO (11:01)
--- NOTE | 2024-10-28 11:07 | DS ---
[facility] DISCHARGE SUMMARY Date Patient Seen: Oct 28, 2024 Time of Visit: 11:04 Supervising Marvin Yi Primary Care Physician: Dr. Marlys Antony Outpatient Specialists:Dr. Andrews/ [facility], Dr. Hernandez/ oncology Inpatient Consults: [ ] PROBLEM LIST: Syncope poa resolved Chronic preserved EF heart failure- without exacerbation Type 2 diabetes with hyperglycemia- hemoglobin A1c of 8.7 Normocytic hypochromic anemia Primary hypertension Hypothyroidism Obesity BMI of 39 Colon cancer metastasized to liver History of hypertension, diabetes mellitus, hyperlipidemia, colon cancer metastasized to the liver post resection colostomy and chemotherapy (last dose 10/24) HOSPITAL COURSE: HPI (per admitting provider) Mr. Simon Cr is a 64 year old male with a past medical history of hypertension, diabetes, hyperlipidemia, colon cancer with Mets to liver, post colon resection, colostomy creation and chemotherapy presents to emergency room with chief complaint of syncopal episode with an onset of yesterday evening. Patient reports he was eating dinner and as he got up from a chair to go to his bedroom his legs became very weak and felt dizzy and that is all he remembers. Patient reports next thing he remembers is getting lifted from the floor and being brought to the hospital. Patient reports he does have had these episodes in the past however has been quite some time since this has happened. Patient reports he is currently receiving chemotherapy in his last dose was October [address] Luis. Patient denies fevers, chills, shortness for breath, chest pain, nausea, vomiting, abdominal pain. Admission vital signs are temperature 98.1 C, heart rate 75 beats per minute, respiratory rate 16 breaths per minute, blood pressure 147/55, O2 sat 99% on room air. Admission labs show anemia with an H&H of 8.7/21.1. Chemistries within normal limits. Troponins negative. UA negative. CT of the head showed bleed. Patient will be admitted for a syncopal episode. Today patient is seen and evaluated at the bedside. Patient is sitting up at the side of the bed accompanied by his . Patient does not appear to be in any acute distress at this time. Patient has not had any recurrent syncopal episodes since prior to admission. All workup has been negative. Orthostatic vital signs have been within normal limits. MRI of the brain was unremarkable. CT of the head was unremarkable. Bilateral carotid Doppler showed no stenosis. 2D echo showed LVEF 55-60%. Patient has been ambulating around the room and nurse's station without any problems. Patient has been advised to follow up with PCP in the next 1-2 days. Patient has been advised to follow up with his oncologist Dr. Garcia for chemotherapy as scheduled. Medication reconciliation has been completed. New prescriptions have been sent to patient's pharmacy. Education regarding current diagnosis been provided to the patient. All questions have been answered. Patient to be discharged home. The patient was treated for the following problems: ACTIVE PROBLEM LIST FOR THE HOSPITALIZATION: Syncope poa resolved Chronic preserved EF heart failure- without exacerbation Type 2 diabetes with hyperglycemia- hemoglobin A1c of 8.7 Normocytic hypochromic anemia Primary hypertension Hypothyroidism Obesity BMI of 39 Colon cancer metastasized to liver History of hypertension, diabetes mellitus, hyperlipidemia, colon cancer metastasized to the liver post resection colostomy and chemotherapy (last dose 10/24) CHRONIC PROBLEMS: continue previous management per PCP unless otherwise indicated COMMUNICATIONS ADMINISTRATOR FINDINGS/RECOMMENDATIONS: [ ] PROCEDURES: as mentioned above DISCHARGE MEDICATIONS: See DC med list Pt hemodynamically stable and afebrile at time of discharge. PCP notified of patients admission, hospital course and discharge. New Medications: Sodium Zirconium Cyclosilicate (Lokelma) 10 Gram Powd.pack 1 PACKET PO DAILY for 30 Days, #30 PACKET 0 Refills Continued Medications: Allopurinol (Allopurinol) 100 Mg Tablet 100 MG PO BID, TAB Ascorbic Acid (Vitamin C) 500 Mg Capsule 1 CAP PO DAILY for 28 Days, #28 CAP 0 Refills Cyanocobalamin (Vitamin B-12) (B-12) 1,000 Mcg Tablet 1 TAB PO DAILY for 30 Days, #30 TAB 0 Refills Dapagliflozin Propanediol (Farxiga) 10 Mg Tablet 1 TAB PO DAILY for 30 Days, #30 TAB 0 Refills Duloxetine HCl (Cymbalta) 60 Mg Capsule.dr 60 MG PO DAILY, CAP Furosemide (Furosemide) 20 Mg Tablet 20 MG PO BID for leg edema, #60 TAB 1 Refill Gabapentin (Gabapentin) 100 Mg Capsule 300 MG PO TID, CAP Insulin NPH Hum/Reg Insulin Hm (Novolin 70-30 Flexpen) 100 Unit/Ml (70-30) Insuln.pen 36 UNIT SQ DAILY, SYRINGE Insulin NPH Hum/Reg Insulin Hm (Novolin 70-30 Flexpen) 100 Unit/Ml (70-30) Insuln.pen 32 UNIT SQ DAILYDINNER, SYRINGE Lisinopril (Lisinopril) 40 Mg Tablet 40 MG PO DAILY, TAB Memantine HCl (Memantine HCl) 10 Mg Tablet 10 MG PO BID, TAB Pantoprazole Sodium (Pantoprazole Sodium) 40 Mg Tablet.dr 40 MG PO DAILY, TAB Pioglitazone HCl (Pioglitazone HCl) 15 Mg Tablet 15 MG PO DAILY, TAB Rosuvastatin Calcium (Rosuvastatin Calcium) 40 Mg Tablet 40 MG PO HS, TAB Sitagliptin Phosphate (Januvia) 100 Mg Tablet 100 MG PO DAILY, TAB PHYSICAL EXAM: GENERAL: alert, weak, awake oriented x 3 HEENT: EOMI, Sclera non icteric, moist mucosa NECK: Supple, no JVD, trachea midline LUNGS: Clear breath sounds bilaterally. No wheezes HEART: Regular rate and rhythm. Normal S1 and S2, without murmurs ABD: Abdomen soft, nontender. Bowel sounds present EXT: No clubbing cyanosis or edema NEURO: Alert and oriented to person, follows commands FOLLOW-UP: Follow-up with PCP in 2-3 days Follow up with oncologist in 1-2 weeks RECOMMENDATIONS: See Discharge Instructions This case was seen and discussed with my supervising physician. More than 30 minutes spent on discharge process, including evaluation of the patient, discussion with nursing staff, medication reconciliation and follow-up appointments ATTESTATION BY PHYSICIAN I have evaluated the patient chart, medical records, and spoke with appropriate staff. I reviewed the documentation, medical decision making, and treatment plan as noted by the mid-level provider above. I agree with the findings and plan of care. De Yi MD, ECTOR N NP Oct 28, 2024 11:07
[2024-10-28 12:00] VITALS: BP 137/57; PULSE 58; RESP 18; TEMP 97.9
== END 2024-10-28 14:00 | disposition home or self-care (01) ==
LOC: EDH 22:18 → EDHIP 10-27 01:16 → 3AH 10-27 17:05
PROVIDERS: ADMIT Internal Medicine; ATTEND Internal Medicine
DX: R55 Syncope and collapse (principal); N17.9 Acute kidney failure, unspecified; D50.9 Iron deficiency anemia, unspecified; I11.0 Hypertensive heart disease with heart failure; I50.30 Unspecified diastolic (congestive) heart failure; E11.65 Type 2 diabetes mellitus with hyperglycemia; E03.9 Hypothyroidism, unspecified; E66.9 Obesity, unspecified; E78.5 Hyperlipidemia, unspecified; C18.9 Malignant neoplasm of colon, unspecified; C78.7 Secondary malignant neoplasm of liver and intrahepatic bile duct; Z68.39 Body mass index [BMI] 39.0-39.9, adult; Z85.038 Personal history of other malignant neoplasm of large intestine; Z85.05 Personal history of malignant neoplasm of liver; Z93.3 Colostomy status; Z79.899 Other long term (current) drug therapy; Z88.8 Allergy status to other drugs, medicaments and biological substances
CPT/HCPCS: 84484; 80048 ×2; 85025 ×2; 81001; 36415 ×3; 70450; 93005; 96374; 96376 ×2; 96361 ×3; 84443; 83540; 82330; 84466; 83880; 82728; 86850; 86900; 86901; 82948 ×5; 93880; 70551; 99291; 94664; 83735; 84100; J1815 ×3; G0378 ×36; J2470 ×3; 83550; 96372

== ENCOUNTER 2024-12-02 17:44 | Emergency (ER) | payer MEDICARE ==
[~2024-12-02] VITALS: Ht 180.3 cm; Wt 127.0 kg
[~2024-12-02 17:44] MED LIST changes: -AMLO5TAB4 PO; +INSU100I35 SQ; +PANT40TA54 PO; +SODI10PO2 PO
--- NOTE | 2024-12-02 19:04 | ERN ---
General Chief Complaint: Altered Mental Status Stated Complaint: ALTERED MENTAL STATUS Time Seen by MD: 18:59 History of Present Illness Initial Comments 64-year-old male came in for altered mental status. As per paramedics patient was walking around the neighborhood not knowing where he was and has been agitated. Patient apparently is hospice and family tired: Hospitalist service who recommended patient to be evaluated in the emergency room. When paramedics arrived to the scene patient appeared agitated with stable vitals. Patient otherwise has no concerns. Allergies: Coded Allergies: No Known Drug Allergies (Unverified Allergy, Unknown, 08/04/22) Home Meds Active Scripts Sodium Zirconium Cyclosilicate (Lokelma) 10 Gram Powd.pack, 1 PACKET PO DAILY for 30 Days, #30 PACKET 0 Refills Prov:EVELYN HOLMAN HELPER MAINTENANCE CLEANING 10/28/24 Furosemide (Furosemide) 20 Mg Tablet, 20 MG PO BID for leg edema, #60 TAB 1 Refill Prov:ISIS TREJO BIG DATA LEAD 10/10/24 Reported Medications Insulin NPH Hum/Reg Insulin Hm (Novolin 70-30 Flexpen) 100 Unit/Ml (70-30) Insuln.pen, 32 UNIT SQ DAILYDINNER, SYRINGE 10/27/24 Insulin NPH Hum/Reg Insulin Hm (Novolin 70-30 Flexpen) 100 Unit/Ml (70-30) Insuln.pen, 36 UNIT SQ DAILY, SYRINGE 10/27/24 Pantoprazole Sodium (Pantoprazole Sodium) 40 Mg Tablet.dr, 40 MG PO DAILY, TAB 10/27/24 Cyanocobalamin (Vitamin B-12) (B-12) 1,000 Mcg Tablet, 1 TAB PO DAILY for 30 Days, #30 TAB 0 Refills 08/22/24 Ascorbic Acid (Vitamin C) 500 Mg Capsule, 1 CAP PO DAILY for 28 Days, #28 CAP 0 Refills 08/22/24 Dapagliflozin Propanediol (Farxiga) 10 Mg Tablet, 1 TAB PO DAILY for 30 Days, #3 0 TAB 0 Refills 08/22/24 Gabapentin (Gabapentin) 100 Mg Capsule, 300 MG PO TID, CAP 04/14/24 Duloxetine HCl (Cymbalta) 60 Mg Capsule.dr, 60 MG PO DAILY, CAP 04/14/24 Rosuvastatin Calcium (Rosuvastatin Calcium) 40 Mg Tablet, 40 MG PO HS, TAB 04/14/24 Lisinopril (Lisinopril) 40 Mg Tablet, 40 MG PO DAILY, TAB 04/14/24 Memantine HCl (Memantine HCl) 10 Mg Tablet, 10 MG PO BID, TAB 04/14/24 Sitagliptin Phosphate (Januvia) 100 Mg Tablet, 100 MG PO DAILY, TAB 04/14/24 Allopurinol (Allopurinol) 100 Mg Tablet, 100 MG PO BID, TAB 04/14/24 Pioglitazone HCl (Pioglitazone HCl) 15 Mg Tablet, 15 MG PO DAILY, TAB 04/14/24 Past Medical History Past Medical History: Cancer, Diabetes-Type II, Hypertension Medical History Other: COLON CA WITH METS TO LIVER, UNKNOWN CARDIAC Past Surgical History: Other Surgical History Other: COLOSTOMY Family History Family History: Negative Social History Social History: Negative, Lives with family ROS Dictation CONSTITUTIONAL: Negative except for HPI HEAD/FACE: Negative except for HPI EENT: Negative except for HPI RESPIRATORY: Negative except for HPI GASTROINTESTINAL/ABDOMINAL: Negative except for HPI GENITOURINARY: Negative except for HPI MUSCULOSKELETAL: Negative except for HPI INTEGUMENTARY: Negative except for HPI NEUROLOGICAL/PSYCH: Negative except for HPI HEMATOLOGIC/LYMPHATIC: Negative except for HPI All Systems Negative, Except as noted above. 13 point review of systems assessed and all negative except for above. Physical Exam Physical Exam Dictation Vital Signs reviewed General Appearance: Alert, oriented x 3, no acute distress, well developed, nourished. Head and Face: non-traumatic. Eyes: PERRL, pink conjunctivas, eyelid no trauma, anterior chamber with arcus senilis. Ears: Pinnas intact and no signs of trauma or erythema ear canals clear and no discharge TM no erythema Nose: No discharge, no bleeding. Oropharynx: Mouth normal, tongue pink, pharynx clear,no erythema, tonsils no exudates, no abscesses noted, mucous membrane moist Neck: Supple, non-tender, no thyromegaly, no masses, no JVD, no bruits Breast:Deferred Chest:No tenderness, no crepitus, no paradoxical movement, no retractions Lungs:Clear, well-ventilated, symmetric, no rales, no wheezing, no rhonchi, no stridor, good breath sounds bilaterally Heart: Regular rate, regular rhythm, no murmur, no gallops Vascular: no peripheral edema, Abdomen: Soft, positive bowel sounds, nondistended, no guarding, nontender, no rebound, no masses no hepatomegaly, no splenomegaly, no Green's sign, no hernias. Rectal: Deferred Genital: Deferred Neurological: Normal speech, motor function intact, sensory function intact Musculoskeletal: Neck nontender, full range of motion, back nontender, full range of motion, Extremities: nontender, full range of motion Skin: Color pink, dry, no turgor, no rash, no lacerations, no abrasions, no contusions. Lymphatic: Deferred Results Laboratory and Microbiology Lab and Micro Result Laboratory Tests Test 12/02/24 19:09 12/02/24 21:57 White Blood Count 6.1 K/uL (4.8-10.8) Red Blood Count 2.90 MIL/uL (4.50-6.20) L Hemoglobin 7.7 g/dL (14.0-18.0) L Hematocrit 25.8 % (42-54) L Mean Corpuscular Volume 89.0 fL (79-99) Mean Corpuscular Hemoglobin 26.6 pg (27.0-33.0) L Mean Corpuscular Hemoglobin Concent 29.8 g/dL (32.0-36.0) L Red Cell Distribution Width 18.6 % (11.0-15.5) H Platelet Count 174 K/uL (130-400) Mean Platelet Volume 9.6 fL (7.5-10.5) Immature Granulocyte % (Auto) 1.1 % (0-1) H Neutrophils (%) (Auto) 77.7 % (40.0-77.0) H Lymphocytes (%) (Auto) 13.7 % (21.0-51.0) L Monocytes (%) (Auto) 6.2 % (3.0-13.0) Eosinophils (%) (Auto) 1.0 % (0.0-8.0) Basophils (%) (Auto) 0.3 % (0.0-5.0) Neutrophils # (Auto) 4.8 K/uL (1.8-7.7) Lymphocytes # (Auto) 0.8 K/uL (1.0-4.8) L Monocytes # (Auto) 0.4 K/uL (0.1-1.0) Eosinophils # (Auto) 0.06 K/uL (0.00-0.70) Basophils # (Auto) 0.02 K/uL (0.00-0.20) Absolute Immature Granulocyte (auto 0.07 K/uL (0-1) Nucleated Red Blood Cells 0.0 % (0.0-0.19) Red Blood Cell Morphology See comments Prothrombin Time 10.7 SEC (9.6-11.6) Prothromb Time International Ratio 0.95 (0.85-1.15) Activated Partial Thromboplast Time 30.7 SEC (26.3-35.5) Sodium Level 139 mmol/L (136-145) Potassium Level 4.5 mmol/L (3.5-5.1) Chloride Level 103 mmol/L (101-111) Carbon Dioxide Level 32 mmol/L (21-32) Blood Urea Nitrogen 13 mg/dL (7-18) Creatinine 1.1 mg/dL (0.5-1.3) Glomerular Filtration Rate Calc 75 mL/min (>90) Random Glucose 257 mg/dL (70-105) H Lactic Acid Level 1.2 mmol/L (0.8-2.5) Total Calcium 8.6 mg/dL (8.5-10.1) Total Bilirubin 0.3 mg/dL (0.2-1.0) Direct Bilirubin 0.1 mg/dL (0.0-0.3) Aspartate Amino Transf (AST/SGOT) 20 U/L (10-37) Alanine Aminotransferase (ALT/SGPT) 28 U/L (12-78) Alkaline Phosphatase 120 U/L (50-136) Ammonia < 10 umol/L (11-32) L Troponin I High Sensitivity 24 ng/L (4-75) Total Protein 6.4 g/dL (6.0-8.3) Albumin 2.8 g/dL (3.5-5.0) L Procalcitonin < 0.05 ng/mL (0.05-0.5) L Serum Alcohol < 3 mg/dL (0-10) Urine Color LIGHT-YELLOW (YELLOW) Urine Appearance CLEAR (CLEAR) Urine pH 5.0 (5.0-8.0) Urine Specific [place] 1.024 (1.001-1.031) Urine Protein NEGATIVE mg/dL (NEGATIVE) Urine Glucose (UA) >=1000 mg/dL (NEGATIVE) H Urine Ketones NEGATIVE mg/dL (NEGATIVE) Urine Occult Blood NEGATIVE (NEGATIVE) Urine Nitrate NEGATIVE (NEGATIVE) Urine Bilirubin NEGATIVE mg/dL (NEGATIVE) Urine Urobilinogen 0.2 mg/dL (0.2-1.0) Urine Leukocyte Esterase NEGATIVE Beti/uL Urine RBC 0-1 /HPF (0-1) Urine WBC 0-1 /HPF (0-1) Urine Squamous Epithelial Cells RARE /HPF (0-2) Urine Bacteria None /HPF (None Seen) Urine Opiates Screen POSITIVE (NEGATIVE) H Urine Barbiturates Screen NEGATIVE (NEGATIVE) Urine Phencyclidine Screen NEGATIVE (NEGATIVE) Urine Amphetamines Screen NEGATIVE (NEGATIVE) Urine Benzodiazepines Screen POSITIVE (NEGATIVE) H Urine Cocaine Screen NEGATIVE (NEGATIVE) Urine Marijuana (THC) Screen NEGATIVE (NEGATIVE) Labs Reviewed?: Yes EKG/XRAY/US/CT/MRI X-RAY Comment [place] [address] [id number] IMAGING REPORT Signed PATIENT: RAFAT DANGELO JR MR#: [id number] : 1960 SEX: M AGE: 64 LOCATION: [facility] ORDER 190 STATUS: [facility] REPORT#: [id number] SERVICE 185 REASON: Shortness of breath ORDERING PHYSICIAN: THO SILVA MD PROCEDURE: CXR1VW - CHEST 1VW INDICATION: Shortness of breath TECHNIQUE: CHEST 1VW COMPARISON: 10/09/2024 FINDINGS/IMPRESSION: Prominent bilateral interstitial markings which may represent bronchitis or vascular congestion in the proper clinical setting. Right chest port is seen place. Cardiac silhouette is within normal limits. Mild degenerative changes of the spine. The visualized upper abdomen appears unremarkable. DICTATED BY: CANDY CRAWFORD MD DATE: 12/02/242033 ELECTRONICALLY SIGNED BY: CANDY CRAWFORD MD DATE: 12/02/242036 CT Scan Comment [place] [address] [id number] IMAGING REPORT Signed PATIENT: CHELLE LUBIN MR#: [id number] : 06/10/1990 SEX: F AGE: 34 LOCATION: [facility] ORDER 42 STATUS: REG ER REPORT#: [id number] SERVICE 41 REASON: fall ORDERING PHYSICIAN: CHARISSA BRAMBILA MD PROCEDURE: OB <14 - US OB <14 WEEKS US OB <14 WEEKS HISTORY: fall TECHNIQUE: Real-time pelvic ultrasound was performed. FINDINGS: Uterus measures 12.6 cm. heart rate 167 bpm's and gestational age is 10 weeks and 2 days. Right ovary measures 2.6 cm with vascular flow. Left ovary was not visualized. The cervix appears closed. IMPRESSION: Single live IUP, as described. DICTATED BY: CANDY CRAWFORD MD DATE: 12/02/242032 ELECTRONICALLY SIGNED BY: CANDY CRAWFORD MD DATE: 12/02/242035 MDM MDM: DIFFERENTIAL DIAGNOSIS: POLYSUBSTANCE ABUSE, MEDICATION SIDE EFFECT, HOSPITALIST, ALTERED MENTAL STATUS, PATIENT IS A 64-YEAR-OLD MALE COMING IN TO BE EVALUATED FOR ALTERED MENTAL STATUS. PER FAMILY MEMBERS PATIENT HAS BEEN TAKING BENZODIAZEPINES AND PAIN MEDICATIONS. THEY NOTICED AFTER TAKING THAT MEDICATION HE WAS HAS BEEN MORE WEAK THROUGHOUT ER VISIT PATIENT HAS BEEN STABLE MEDICATIONS AFFECTS HAVE DECREASED AND PATIENT WAS MORE ALERT PATIENT WISHES TO GO HOME. I EDUCATED PATIENT ON AVOIDANCE OF BENZODIAZEPINES AND NARCOTICS THAT THEY WILL MAKE HIM DROWSY AND COULD CAUSE THE FALL. PATIENT WAS CURRENTLY ON HOSPICE HE WILL BE DISCHARGED BACK HOME ED Course Orders Procedure Category Date Status Time 12 Lead Ekg Tracing- EKG 12/02/24 Complete Technical 18:59 Cbc With Differential LAB 12/02/24 Complete 18:59 Basic Metabolic Panel LAB 12/02/24 Complete 18:59 Drug Screen Urine LAB 12/02/24 Complete 18:59 Hepatic Function Panel LAB 12/02/24 Complete 18:59 Lactic Acid LAB 12/02/24 Complete 18:59 Procalcitonin LAB 12/02/24 Complete 18:59 Pt And Ptt LAB 12/02/24 Complete 18:59 Troponin I High LAB 12/02/24 Complete Sensitivity 18:59 Urinalysis LAB 12/02/24 Complete W/Microscopic 18:59 Alcohol, Blood LAB 12/02/24 Complete 18:59 Ammonia LAB 12/02/24 Complete 18:59 Chest 1vw RAD 12/02/24 Resulted 18:59 Ct Head/Brain W/O CT 12/02/24 Resulted Contrast 18:59 Vital Signs Date Time Temp Pulse Resp B/P (MAP) Pulse Ox O2 Delivery O2 Flow Rate FiO2 12/02/24 21:48 69 18 128/65 99 Room Air* 0 21 12/02/24 19:58 98.2 67 18 112/51 99 Room Air* 0 21 12/02/24 18:29 98.2 64 16 132/46 98 Room Air* 0 12/02/24 17:47 99.0 280 18 107/37 97 Room Air DX & DISP Disposition: Discharge Departure Impression: Primary Impression: Medication side effect Additional Impression: Hospice care Condition: Stable Additional Instructions: FOLLOW-UP WITH PRIMARY CARE PROVIDER IN 1 TO 2 DAYS. TAKE MEDICATIONS DIRECTED HERE IN THE EMERGENCY ROOM. OKAY TO CONTINUE HOME MEDICATIONS UNLESS OTHERWISE DISCUSSED DURING YOUR VISIT IN THE EMERGENCY ROOM TODAY. RETURN TO YOUR NEAREST EMERGENCY ROOM IF SYMPTOMS WORSEN OR IF THERE IS NO IMPROVEMENT. CALL 911 IF YOU NEED IMMEDIATE ASSISTANCE. TAKE TYLENOL [id number] NEEDED AND IF NO CONTRAINDICATIONS ARE PRESENT. INCREASE ORAL HYDRATION. A WOUND CULTURE OR URINE CULTURE WAS ORDERED HERE IN THE EMERGENCY ROOM DEPARTMENT PLEASE FOLLOW-UP WITH PRIMARY CARE PROVIDER AND ADVISE THEM TO GET REPEAT PORTS FROM OUR FACILITY. IF YOU HAD ANY GERALD WRAP/SPLINTS THAT WERE APPLIED HERE, PLEASE DO NOT REMOVE THEM UNTIL YOU SEE YOUR PRIMARY CARE OR SPECIALTY. REFERRALS: Referrals: RADU REYNOSO M.D. (PCP) Time of Disposition: 22:36 THO SILVA MD Dec 02, 2024 19:04 CHARISSA BRAMBILA MD Dec 02, 2024 22:37
--- NOTE | 2024-12-02 19:25 | NUR ---
TRANSFERED CARE TO [facility] AT THIS TIME
[2024-12-02 19:35] LABS: BASOPHILS # (AUTO) 0.02 K/uL (0.00-0.20); BASOPHILS % (AUTO) 0.3 % (0.0-5.0); EOSINOPHILS # (AUTO) 0.06 K/uL (0.00-0.70); HEMATOCRIT 25.8 % (42-54); IMMATURE GRANULOCYTE ABSOLUTE 0.07 K/uL (0-1); LYMPHOCYTES # (AUTO) 0.8 K/uL (1.0-4.8); LYMPHOCYTES % (AUTO) 13.7 % (21.0-51.0); MEAN CORPUSCULAR HEMOGLOBIN 26.6 pg (27.0-33.0); MEAN CORPUSCULAR HGB CONC 29.8 g/dL (32.0-36.0); MONOCYTES # (AUTO) 0.4 K/uL (0.1-1.0); MONOCYTES % (AUTO) 6.2 % (3.0-13.0); NEUTROPHILS # (AUTO) 4.8 K/uL (1.8-7.7); NEUTROPHILS % (AUTO) 77.7 % (40.0-77.0); PLATELET COUNT (AUTO) 174 K/uL (130-400); RED CELL DISTRIBUTION WIDTH 18.6 % (11.0-15.5); WHITE BLOOD COUNT (AUTO) 6.1 K/uL (4.8-10.8)
[2024-12-02 19:50] LABS: INR 0.95 (0.85-1.15); PROTHROMBIN TIME 10.7 SEC (9.6-11.6)
[2024-12-02 19:52] LABS: PARTIAL THROMBOPLASTIN TIME 30.7 SEC (26.3-35.5)
[2024-12-02 19:57] LABS: CARBON DIOXIDE 32 mmol/L (21-32); CHLORIDE 103 mmol/L (101-111); CREATININE 1.1 mg/dL (0.5-1.3); GLOMERULAR FILTR. RATE CALC 75 mL/min (>90); GLUCOSE,RANDOM 257 mg/dL (70-105); POTASSIUM 4.5 mmol/L (3.5-5.1); SODIUM SERUM 139 mmol/L (136-145); UREA NITROGEN, BLOOD 13 mg/dL (7-18)
--- NOTE | 2024-12-02 19:59 | HMCIMG ---
CT HEAD/BRAIN W/O CONTRAST INDICATION: Altered mental status TECHNIQUE: CT HEAD/BRAIN W/O CONTRAST. CT was performed with one or more of the following dose reduction techniques: Automated exposure control, adjustment of the mA and/or kV according to the patient's size, or use of the iterative reconstruction technique. Comparison: MRI dated 10/27/2024 FINDINGS: Cerebral atrophy seen. Nonspecific periventricular and subcortical white matters changes are noted likely representing small vessel ischemic changes. No midline shift or herniation. No extra axial collection. No acute intracranial bleed. The visualized paranasal sinuses and mastoid air cells are normally aerated. IMPRESSION: Diffuse atrophy. No acute intracranial bleed is seen. Nonspecific white matter changes
[2024-12-02 20:06] LABS: ALANINE AMINOTRANSFERASE 28 U/L (12-78); ALBUMIN 2.8 g/dL (3.5-5.0); ALCOHOL, BLOOD < 3 mg/dL (0-10); AMMONIA < 10 umol/L (11-32); ASPARTATE AMINOTRANSFERASE 20 U/L (10-37); BILIRUBIN,DIRECT 0.1 mg/dL (0.0-0.3); BILIRUBIN,TOTAL 0.3 mg/dL (0.2-1.0); TOTAL PROTEIN, SERUM 6.4 g/dL (6.0-8.3)
--- NOTE | 2024-12-02 20:11 | EKG ---
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
--- NOTE | 2024-12-02 20:37 | HMCIMG ---
INDICATION: Shortness of breath TECHNIQUE: CHEST 1VW COMPARISON: 10/09/2024 FINDINGS/IMPRESSION: Prominent bilateral interstitial markings which may represent bronchitis or vascular congestion in the proper clinical setting. Right chest port is seen place. Cardiac silhouette is within normal limits. Mild degenerative changes of the spine. The visualized upper abdomen appears unremarkable.
[2024-12-02 22:14] LABS: AMPHET/METH SCREEN,URINE NEGATIVE (NEGATIVE); BARBITURATE SCREEN, URINE NEGATIVE (NEGATIVE); BENZODIAZEPINES SCREEN,URINE POSITIVE (NEGATIVE); CANNABINOID SCREEN,URINE NEGATIVE (NEGATIVE); COCAINE SCREEN,URINE NEGATIVE (NEGATIVE); OPIATE SCREEN,URINE POSITIVE (NEGATIVE); PHENCYCLIDINE SCREEN,URINE NEGATIVE (NEGATIVE)
[2024-12-02 22:17] LABS: APPEARANCE,URINE CLEAR (CLEAR); BILIRUBIN,URINE NEGATIVE (NEGATIVE); COLOR,URINE LIGHT-YELLOW (YELLOW); GLUCOSE, URINE (UA) >=1000 mg/dL (NEGATIVE); KETONES,URINE NEGATIVE (NEGATIVE); LEUKOCYTE ESTERASE ,URINE NEGATIVE Leu/uL (NEGATIVE); NITRATE,URINE NEGATIVE (NEGATIVE); OCCULT BLOOD,URINE NEGATIVE (NEGATIVE); PROTEIN,URINE NEGATIVE (NEGATIVE); RBC,URINE 0-1 /HPF (0-1); SQUAMOUS EPITHELIAL CELL,UR RARE /HPF (0-2); UROBILINOGEN,URINE 0.2 mg/dL (0.2-1.0); WBC,URINE 0-1 /HPF (0-1)
[2024-12-02 23:09] VITALS: BP 128/71; PULSE 80; RESP 18; TEMP 98.2; O2SAT 98
== END 2024-12-02 22:56 | disposition home or self-care (01) ==
LOC: EDH 17:44
DX: R41.82 Altered mental status, unspecified (principal); T42.4X5A Adverse effect of benzodiazepines, initial encounter; E11.9 Type 2 diabetes mellitus without complications; I10 Essential (primary) hypertension; Z79.4 Long term (current) use of insulin; Z79.84 Long term (current) use of oral hypoglycemic drugs; Z79.899 Other long term (current) drug therapy; Y92.89 Other specified places as the place of occurrence of the external cause
CPT/HCPCS: 36415; 70450; 71045; 80048; 80076; 80305; 81001; 82140; 83605; 84145; 84484; 85025; 85610; 85730; 93005; 99285